=== PATIENT | male | born 1935 | race Caucasian/White ===

== ENCOUNTER → 2023-10-09 09:03 | Outpatient (REF) | payer MEDICARE, SELFPAY ==
[2023-10-09 11:41] LABS: Urine Albumin Trace (Neg - Trace); Urine Bilirubin 1+ (Negative); Urine Character Slightly Cloudy (Clear); Urine Color Yellow; Urine Glucose Negative (Negative); Urine Ketone Trace (Negative); Urine Leukocyte 2+ (Negative); Urine Nitrite Positive (Negative); Urine Occult Blood 4+ (Negative); Urine Specific Gravity 1.025 (<1.030); Urine Urobilinogen Negative (Neg - 1+)
[2023-10-09 12:01] LABS: Urine Amorphous Seen; Urine Bacteria Many (Negative)
== END ==
LOC: OLABP 09:03
PROVIDERS: ATTENDING PHYSICIAN Internal Medicine Geriatric Medicine
DX: N39.0 Urinary tract infection, site not specified (principal)
CPT/HCPCS: 81003; 81015; 87086; 87088; 87186

== ENCOUNTER → 2024-01-23 11:45 | Outpatient (REF) | payer MEDICARE, SELFPAY ==
[2024-01-23 12:05] LABS: Urine Albumin 1+ (Neg - Trace); Urine Bilirubin 1+ (Negative); Urine Character Very Cloudy (Clear); Urine Color Brown; Urine Glucose Negative (Negative); Urine Ketone Trace (Negative); Urine Leukocyte 2+ (Negative); Urine Nitrite Positive (Negative); Urine Occult Blood 1+ (Negative); Urine Specific Gravity 1.015 (<1.030); Urine Urobilinogen 2+ (Neg - 1+)
[2024-01-23 13:01] LABS: Urine Red Blood Cell 0-2 /HPF (0-2)
[2024-01-23 13:02] LABS: Urine Bacteria Many (Negative)
== END ==
LOC: OLABP 11:45
PROVIDERS: ATTENDING PHYSICIAN Internal Medicine Geriatric Medicine
DX: N39.0 Urinary tract infection, site not specified (principal)
CPT/HCPCS: 81003; 81015; 87077; 87086; 87186

== ENCOUNTER → 2024-01-27 11:32 | Outpatient (REF) | payer MEDICARE, SELFPAY ==
[2024-01-27 12:41] LABS: % Basophils 0.5 % (0-2); % Eosinophils 2.2 % (0-6); % Immature Granulocytes 0.3 % (0-0.5); % Lymphocytes 32.2 % (20.5-51.1); % Monocytes 14.2 % (1.7-9.3); % Neutrophils 50.6 % (42.2-75.2); Absolute Eosinophils 0.1 10^3/uL (0-0.7); Absolute Monocytes 0.9 10^3/uL (0.1-0.6); Absolute Neutrophils 3.2 10^3/uL (1.4-6.5); Hematocrit 35.6 % (39.0-52.0); Hemoglobin 12.4 g/dL (13.0-18.0); Mean Corp Hgb Conc. 34.8 g/dL (33.0-37.0); Mean Corpuscular Hgb 29.7 pg (27.0-31.0); Mean Corpuscular Volume 85.2 fL (80.0-94.0); Nucleated Red Blood Cells % 0 % (-); Platelet Count 174 10^3/uL (130-400); Red Blood Cell Count 4.18 10^6/uL (4.70-6.10); Red Cell Dist. Width 14.3 % (11.5-14.5); White Blood Cell Count 6.3 10^3/uL (4.8-10.8)
== END ==
LOC: OLABPG 11:32
PROVIDERS: ATTENDING PHYSICIAN Internal Medicine Geriatric Medicine; OTHER PHYSICIAN Urology
DX: N39.0 Urinary tract infection, site not specified (principal)
CPT/HCPCS: 36415; 85025; 87077; 87086; 87186

== ENCOUNTER 2024-06-08 08:06 | Emergency (ER) | payer MEDICARE, SELFPAY ==
[2024-06-08 08:09] VITALS: BP 128/99
[2024-06-08 08:44] LABS: Urine Albumin 1+ (Neg - Trace); Urine Bilirubin Negative (Negative); Urine Character Slightly Cloudy (Clear); Urine Color Yellow; Urine Glucose Negative (Negative); Urine Ketone Negative (Negative); Urine Leukocyte 2+ (Negative); Urine Nitrite Negative (Negative); Urine Occult Blood 4+ (Negative); Urine Urobilinogen 2+ (Neg - 1+)
[2024-06-08 09:00] VITALS: BP 139/98
[2024-06-08 09:02] LABS: Urine Bacteria Many (Negative)
[2024-06-08 09:04] LABS: Urine Red Blood Cell 80-90 /HPF (0-2)
[2024-06-08 09:05] LABS: Urine Squamous Cell 0-2 /LPF (Few); Urine White Cell >100 /HPF (0-5)
--- NOTE | 2024-06-08 09:42 | ED.GENMED ---
History of Present Illness
General
Chief Complaint: Catheter/Tube Problem
Source: patient and ambulance crew
Exam Limitations: dementia
Time Seen by Provider: 06/08/24 08:12
History of Present Illness
History of Present Illness:
89-year-old male with a history dementia sent for leaking catheter. On my evaluation the patient is cursing that no one has answered his pain. Patient is not really sure where his pain is but states that it hurts when they change the catheter out.
Has an indwelling [place] catheter. No reported fever
Past History
Past History
ED Past Medical History: Cancer (:), GERD, HTN, NIDDM and Other (Chronic indwelling [place] catheter, prostamegaly, chronic kidney disease, carotid atherosclerosis, dementia)
ED Past Surgical History: None
Social History
Tobacco: Non-smoker
Alcohol: None
Phy Exam
Physical Exam
Physical Exam:
CONSTITUTIONAL Patient alert and oriented to person. Well-appearing. Vital signs reviewed.
HEAD atraumatic, normocephalic.
EYES eyelids normal to inspection, Extraocular muscles intact, Conjunctiva normal, Sclera normal.
NECK normal range of motion, Trachea midline, no jugular venous distention.
RESPIRATORY CHEST No respiratory distress noted, Chest expansion equal
ABDOMEN abdomen nontender, Bowel sounds normal. No distention.
penis and scrotum unremarkable.
BACK normal inspection, no obvious deformities
UPPER EXTREMITY range of motion normal, Motor strength normal, no cyanosis, no edema.
LOWER EXTREMITY range of motion normal, Motor strength normal, no cyanosis, no edema.
NEURO Speech normal, No focal motor deficits, [place] coma scale 15, Memory normal, Cranial Nerves intact to screening exam.
SKIN skin warm, dry, and normal in color.
Course
Orders/Labs/Results
Orders:
Orders
06/08/24 08:24
Urinalysis Reflex To Culture Urgent
Date Specimen was Collected: 06/08/24
Time Specimen was Collected: 08:21
Urine Microscopic Reflex Cult Urgent
Urine Culture Urgent
KEN Source: U
Specimen Description:
Date Specimen was Collected: 06/08/24
Time Specimen was Collected:
Abnormal Lab Results
06/08/24
08:24
Ur Occult Blood Reflex 4+ A
(Negative)
Urine Urobilinogen 2+ A
(Neg - 1+)
Leukocyte Esterase Rfl 2+ A
(Negative)
Urine RBC 80-90 A /HPF
(0-2)
Urine WBC (Reflex) >100 A /HPF
(0-5)
Urine Bacteria (Reflex) Many A
(Negative)
Urine Albumin (Reflex) 1+ A
(Neg - Trace)
Vital Signs
Initial and Last Documented VS:
Initial Vital Signs
Temp Pulse Resp BP Pulse Ox
97.8 F 95 16 128/99 98
06/08/24 08:09 06/08/24 08:09 06/08/24 08:09 06/08/24 08:09 06/08/24 08:09
Last Documented Vital Signs
Temp Pulse Resp BP Pulse Ox
97.8 F 95 16 139/98 95
06/08/24 08:09 06/08/24 08:09 06/08/24 08:09 06/08/24 09:00 06/08/24 09:00
MDM/Problems Addressed
MDM/Problems Addressed:
Leaking [place] catheter, UTI, chronic bladder outlet obstruction, chronic dementia
Chronic conditions affecting care: Other (Dementia)
*Pulse Oximetry
Patient hypoxic: no
*Critical Care Note
Total Time (30-74mins, 75-104mins- exclusive of procedures): Not Applicable
Data Reviewed
Review of Other/Old Records Reveals: Labs (Prior cultures reviewed)
Source: patient
Patient Management
Escalation/DeEscalation of care consider admission/obs:
Patient appears well and at baseline. Cover with antibiotics. [place] catheter changed out. Okay for discharge. Afebrile. Awake and alert
ED Attending Note
-
Portions of this chart may have been created with voice recognition software.� Occasional wrong word or��sound alike� substitutions may have occurred due to the inherent limitations of voice recognition software.
Discharge Plan
Departure
Patient Disposition: Home (Routine Discharge)
Date of Disposition: 06/08/24
Time of Disposition: 09:48
Patient with high blood pressure during this ER visit?: Yes
Discharge Problem:
Chronic indwelling [place] catheter, Acute UTI
Prescriptions:
New
levofloxacin 250 mg tablet
250 mg PO DAILY Qty: 6 0RF
No Action
acetaminophen 325 mg Tablet
650 mg PO Q6H PRN (Reason: mild pain/fever>101)
aspirin 81 mg Tablet,Delayed Release (Dr/Ec)
81 mg PO HS
magnesium hydroxide [Milk of Magnesia] 400 mg/5 mL Suspension
30 ml PO DAILY PRN (Reason: if no bm x 3 days)
bisacodyl [Dulcolax (bisacodyl)] 10 mg Suppository
10 mg [place] DAILY PRN (Reason: if mom ineffective)
Citrucel 500 mg Tablet
2,000 mg PO BID
dorzolamide 2 % drops
1 drp RIGHT EYE BID
cholecalciferol (vitamin D3) [Vitamin D3] 50 mcg (2,000 unit) Capsule
50 mcg PO DAILY
Eliquis 5 mg Tablet
5 mg PO BID Qty: 60 0RF
atorvastatin 40 mg Tablet
40 mg PO HS
trazodone 50 mg Tablet
25 mg PO HS
diltiazem HCl 240 mg Capsule,Extended Release 24hr
240 mg PO DAILY
ibuprofen 200 mg Tablet
200 mg PO Q30M PRN (Reason: mild pain)
Rx Instructions:
03/18/2023, patient takes 30 minutes prior to monthly cath change
omeprazole 20 mg Capsule,Delayed Release(Dr/Ec)
20 mg PO DAILY
furosemide 20 mg Tablet
20 mg PO DAILY
ondansetron 4 mg Tablet,Disintegrating
4 mg PO Q8H PRN (Reason: nausea/vomiting)
Ensure Liquid
1 ea PO BID
latanoprostene bunod 0.024 % Drops
1 drp RIGHT EYE HS
metoprolol succinate 100 mg tablet extended release 24 hr
100 mg PO DAILY
lidocaine 5 % Ointment
1 applic TOPICAL Q30M PRN (Reason: skin pain)
Rx Instructions:
03/18/2023, patient applies 30 minutes prior to cuba catheter insertion to tip of penis
Referrals:
UNKNOWN - PT DOES,NOT KNOW [Family Provider] -
Activity Restrictions/Additional Instructions:
Please see your doctor next 2 days for follow-up and reevaluation peer return immediate for fevers, vomiting, blood in catheter or any other concerns.
Interventions
Interventions:
*Risk Screen - Suicide Last Done: 06/08/24 08:09
*General Assessment Last Done: 06/08/24 08:09
*Neglect/Abuse Screening Last Done: 06/08/24 08:09
*ED COVID-19 Vaccine History Last Done: 06/08/24 08:28
DP-Ngjfpb-Fppxtwsaft Assessment Last Done: 06/08/24 08:28
ED-Male Genitourinary Assessment Last Done: 06/08/24 08:28
Discharge Date and Time
Print Language: JAPANESE
[2024-06-08 10:00] VITALS: BP 122/86
[2024-06-08] MEDS: LEVAQUIN 500 MG PO (10:28)
[2024-06-08 11:17] VITALS: BP 129/84
== END 2024-06-08 11:21 | disposition home or self-care (01) ==
LOC: EMR 08:06
PROVIDERS: EMERGENCY PHYSICIAN Emergency Medicine
DX: N39.0 Urinary tract infection, site not specified (principal); F03.90 Unspecified dementia, unspecified severity, without behavioral disturbance, psychotic disturbance, mood disturbance, and anxiety; I12.9 Hypertensive chronic kidney disease with stage 1 through stage 4 chronic kidney disease, or unspecified chronic kidney disease; E11.22 Type 2 diabetes mellitus with diabetic chronic kidney disease; N18.9 Chronic kidney disease, unspecified; K21.9 Gastro-esophageal reflux disease without esophagitis
CPT/HCPCS: 99282; 51702; 81003; 81015; 87086

== ENCOUNTER → 2024-06-08 13:08 | Outpatient (REF) | payer MEDICARE, SELFPAY ==
[2024-06-08 13:48] LABS: % Basophils 0.5 % (0-2); % Eosinophils 2.5 % (0-6); % Immature Granulocytes 0.3 % (0-0.5); % Lymphocytes 29.5 % (20.5-51.1); % Monocytes 14.9 % (1.7-9.3); % Neutrophils 52.3 % (42.2-75.2); Absolute Eosinophils 0.2 10^3/uL (0-0.7); Absolute Lymphocytes 1.8 10^3/uL (1.2-3.4); Absolute Monocytes 0.9 10^3/uL (0.1-0.6); Absolute Neutrophils 3.2 10^3/uL (1.4-6.5); Hematocrit 35.2 % (39.0-52.0); Hemoglobin 11.7 g/dL (13.0-18.0); Mean Corp Hgb Conc. 33.2 g/dL (33.0-37.0); Mean Corpuscular Hgb 28.7 pg (27.0-31.0); Mean Corpuscular Volume 86.3 fL (80.0-94.0); Mean Platelet Volume 12.6 fL (7.4-10.4); Nucleated Red Blood Cells % 0 % (-); Platelet Count 129 10^3/uL (130-400); Red Blood Cell Count 4.08 10^6/uL (4.70-6.10); Red Cell Dist. Width 14.5 % (11.5-14.5); White Blood Cell Count 6.1 10^3/uL (4.8-10.8)
[2024-06-08 14:07] LABS: ALT (SGPT) 26 U/L (0-50); AST (SGOT) 26 U/L (17-59); Albumin 3.2 g/dl (3.5-5.0); Alkaline Phosphatase 71 U/L (38-126); Blood Urea Nitrogen 20 mg/dl (9-20); Calcium 8.5 mg/dl (8.4-10.2); Carbon Dioxide 26 mmol/L (22-30); Chloride 106 mmol/L (98-107); Glucose 126 mg/dl (70-99); HDL Cholesterol 32 mg/dl; LDL Cholesterol, Calculated 55 mg/dl; Potassium 4.3 mmol/L (3.5-5.1); Sodium 143 mmol/L (135-145); Total Bilirubin 0.6 mg/dl (0.2-1.3); Total Cholesterol 103 mg/dl (50-199); Triglyceride 82 mg/dl (10-149); Very Low Density Lipoprotein 16 mg/dl (0-30); eGFR > 60.00
[2024-06-08 14:14] LABS: Vitamin D, 25-OH*** 36.1 ng/mL (30-80)
[2024-06-08 14:23] LABS: Glycohemoglobin (HgbA1c) 6.9 % (4.0-5.6)
== END ==
LOC: OLABPG 13:08
PROVIDERS: ATTENDING PHYSICIAN Internal Medicine Geriatric Medicine
DX: E55.9 Vitamin D deficiency, unspecified (principal); E11.9 Type 2 diabetes mellitus without complications
CPT/HCPCS: 36415; 80053; 80061; 82306; 83036; 85025

== ENCOUNTER 2024-07-24 08:09 | Emergency (ER) | payer MEDICARE, SELFPAY ==
[2024-07-24 08:11] VITALS: BP 141/96
--- NOTE | 2024-07-24 09:10 | ED.GENMED ---
History of Present Illness
General
Chief Complaint: Catheter/Tube Problem
Source: patient and ambulance crew
Exam Limitations: dementia
Time Seen by Provider: 07/24/24 09:02
Nursing documentation reviewed up to this point in time: agreed with
History of Present Illness
History of Present Illness:
pt is a 89 y/o M
from memory care at [facility]
h/o alzheimers
chronic indwelling york
apparently had some leaking around his penis from where his york is since yesterday and somem blood noticed in his urine
he is on elqiuis
pt is unable to provide history
i called [facility] and spoke with a RN who said he complained of pain this morning at the catheter site at his penis
he is due for a york change in 2 weeks
he is followed by urology
pt has not had any fever, chills, change in mental status, no vomitnig
Past History
Past History
ED Past Medical History: Cancer (:), GERD, HTN, NIDDM and Other (Chronic indwelling York catheter, prostamegaly, chronic kidney disease, carotid atherosclerosis, dementia)
ED Past Surgical History: None
Social History
Tobacco: Non-smoker
Alcohol: None
Review of Systems
Review of Systems
Allergies reviewed?: Yes
Unable to obtain full review of systems at this time due to: dementia
All Other Systems: Not applicable
Phy Exam
Physical Exam
Physical Exam:
GENERAL: Alert , in no apparent distress
EYE: pupils equal and reactive
NECK: Supple
ENT: o/p clr, mmm.
CARDIAC: Regular rate and rhythm .
LUNGS: Clear breath sounds bilaterally, no acute respiratory distress, no wheezes/rales/rhonchi
ABDOMEN: Soft, without focal tenderness, no r/g, no cvat, normal bowel sounds
gu: blood in the diaper (pink, no clots)
some cloudy urine in theh bag;
NEUROLOGICAL: Alert and oriented x 1; dementia, no focal neuro deficits
SKIN: Warm and dry, skin intact.
MUSCULOSKELETAL: No edema, well perfused. neg javier's sign
PSYCH: Normal and appropriate interaction.
Course
Orders/Labs/Results
Orders:
Orders
07/24/24 09:12
York Placement- Treatment ONCE
Reason for insertion: Chronic York on Admit
07/24/24 09:17
Lidocaine 2% [Lidocaine Uro-Jet 2%] 1 syringe .ROUTE .[facility]
07/24/24 09:34
Urinalysis Reflex To Culture Urgent
Date Specimen was Collected: 07/24/24
Time Specimen was Collected: 09:32
Urine Microscopic Reflex Cult Urgent
Urine Culture Urgent
KEN Source: U
Specimen Description:
Date Specimen was Collected: 07/24/24
Time Specimen was Collected: 09:32
07/24/24 10:18
Sulfamethox./Trimethoprim Ds [Bactrim Ds 800 mg/160 mg] 1 tablet PO NOW STA
07/24/24 10:21
LevoFLOXacin [Levaquin] 250 mg PO NOW STA
Abnormal Lab Results
07/24/24
09:34
Urine Ketones Trace A
(Negative)
Ur Occult Blood Reflex 4+ A
(Negative)
Urine Nitrite (Reflex) Positive A
(Negative)
Urine Urobilinogen 2+ A
(Neg - 1+)
Leukocyte Esterase Rfl 2+ A
(Negative)
Urine Albumin (Reflex) 3+ A
(Neg - Trace)
Vital Signs
Initial and Last Documented VS:
Initial Vital Signs
Temp Pulse Resp BP Pulse Ox
36.4 C 96 18 141/96 98
07/24/24 08:11 07/24/24 08:11 07/24/24 08:11 07/24/24 08:11 07/24/24 08:11
Last Documented Vital Signs
Temp Pulse Resp BP Pulse Ox
36.4 C 96 18 141/96 98
07/24/24 08:11 07/24/24 08:11 07/24/24 08:11 07/24/24 08:11 07/24/24 08:11
MDM/Problems Addressed
Differential Diagnosis Includes:
Traumatic hematuria, UTI, cystitis, York catheter malfunction
MDM/Problems Addressed:
89-year-old male with a history of dementia from a memory care unit presents for gross hematuria in his diaper and leakage of urine around the tubing. Patient is due to have his York changed in the next week or 2 and gets it routinely changed
every month. He has had this problem before, occasionally he grows out Proteus or Enterococcus. Patient does not report any discomfort to me and has not had any fevers recently. The nursing staff says that he complained of pain at his urethral
meatus this morning. He is on Eliquis. On exam there was a little trace of pink blood in the diaper without clots and what was draining in the York bag looked cloudy but not bloody. He did have some leakage of urine around the tubing. His York
was easily replaced and does have some translucent pink draining urine. There is no clots. His bladder scan postprocedure was less than 6 mL. He does have nitrate positive urine with blood and leukocytes. Sometimes he does have nitrate positive
and sometimes not. He is not overly ill-appearing or having any systemic symptoms however I will cover him with antibiotics. He is allergic to penicillin and cephalosporin, previously both Enterococcus and Proteus have been sensitive to Levaquin.
Patient given return precautions, follow-up with urology
*Critical Care Note
Total Time (30-74mins, 75-104mins- exclusive of procedures): Not Applicable
ED Attending Note
-
Portions of this chart may have been created with voice recognition software.� Occasional wrong word or��sound alike� substitutions may have occurred due to the inherent limitations of voice recognition software.
Discharge Plan
Departure
Patient Disposition: Home (Routine Discharge)
Date of Disposition: 07/24/24
Time of Disposition: 10:18
Patient with high blood pressure during this ER visit?: No
Covid-19: Not Applicable
Discharge Problem:
UTI (urinary tract infection), Hematuria
Instructions: How to Care for Your York Catheter, Male, Urinary Tract Infection, Adult ED
Prescriptions:
New
levofloxacin 250 mg tablet
250 mg PO DAILY Qty: 6 0RF
No Action
acetaminophen 325 mg Tablet
650 mg PO Q6H PRN (Reason: mild pain/fever>101)
aspirin 81 mg Tablet,Delayed Release (Dr/Ec)
81 mg PO HS
magnesium hydroxide [Milk of Magnesia] 400 mg/5 mL Suspension
30 ml PO DAILY PRN (Reason: if no bm x 3 days)
bisacodyl [Dulcolax (bisacodyl)] 10 mg Suppository
10 mg [place] DAILY PRN (Reason: if mom ineffective)
Citrucel 500 mg Tablet
2,000 mg PO BID
dorzolamide 2 % drops
1 drp RIGHT EYE BID
cholecalciferol (vitamin D3) [Vitamin D3] 50 mcg (2,000 unit) Capsule
50 mcg PO DAILY
Eliquis 5 mg Tablet
5 mg PO BID Qty: 60 0RF
atorvastatin 40 mg Tablet
40 mg PO HS
trazodone 50 mg Tablet
25 mg PO HS
diltiazem HCl 240 mg Capsule,Extended Release 24hr
240 mg PO DAILY
ibuprofen 200 mg Tablet
200 mg PO Q30M PRN (Reason: mild pain)
Rx Instructions:
03/18/2023, patient takes 30 minutes prior to monthly cath change
omeprazole 20 mg Capsule,Delayed Release(Dr/Ec)
20 mg PO DAILY
furosemide 20 mg Tablet
20 mg PO DAILY
ondansetron 4 mg Tablet,Disintegrating
4 mg PO Q8H PRN (Reason: nausea/vomiting)
Ensure Liquid
1 ea PO BID
latanoprostene bunod 0.024 % Drops
1 drp RIGHT EYE HS
metoprolol succinate 100 mg tablet extended release 24 hr
100 mg PO DAILY
lidocaine 5 % Ointment
1 applic TOPICAL Q30M PRN (Reason: skin pain)
Rx Instructions:
03/18/2023, patient applies 30 minutes prior to york catheter insertion to tip of penis
levofloxacin 250 mg tablet
250 mg PO DAILY Qty: 6 0RF
Referrals:
Zuhair Nicole MD [Family Provider] - Follow up in 2-3 days
Activity Restrictions/Additional Instructions:
SANDEE'S YORK WAS CHANGED
HIS URINE APPEARS INFECTED SO WE WILL TREAT HIM WITH ANTIBIOTICS LEVAQUIN ONCE A DAY FOR 6 DAYS STARTING TOMORROW
MAKE SURE TO WATCH FOR FEVER, VOMITING, WORSENING YORK ISSUES, NOT DRAINING OR ANY CONCERNS.
FOLLOW UP WITH UROLOGIST
RETURN FO RANY CONCERNS.
Interventions
Interventions:
*Risk Screen - Suicide Last Done: 07/24/24 08:11
*General Assessment Last Done: 07/24/24 08:11
*Neglect/Abuse Screening Last Done: 07/24/24 08:11
ED- Fall Risk Assessment Last Done: 07/24/24 10:35
*ED COVID-19 Vaccine History Last Done: 07/24/24 08:11
OP-Jdxjtl-Mpuudimzld Assessment Last Done: 07/24/24 09:30
ED-Male Genitourinary Assessment Last Done: 07/24/24 09:30
Discharge Date and Time
Print Language: PAP[place]
[2024-07-24 09:48] LABS: Urine Albumin 3+ (Neg - Trace); Urine Bilirubin Negative (Negative); Urine Character Very Cloudy (Clear); Urine Color Red; Urine Glucose Negative (Negative); Urine Ketone Trace (Negative); Urine Leukocyte 2+ (Negative); Urine Nitrite Positive (Negative); Urine Occult Blood 4+ (Negative); Urine Specific Gravity 1.015 (<1.030); Urine Urobilinogen 2+ (Neg - 1+)
[2024-07-24] MEDS: LEVAQUIN 250 MG PO (10:34)
[2024-07-24 10:40] LABS: Urine Triple Phosphate Crystal Seen
[2024-07-24 10:41] LABS: Urine Bacteria Moderate (Negative); Urine Red Blood Cell >100 /HPF (0-2); Urine White Cell 0-2 /HPF (0-5)
== END 2024-07-24 10:50 ==
LOC: EMR 08:09
PROVIDERS: Physician Assistant; EMERGENCY PHYSICIAN Emergency Medicine; FAMILY PHYSICIAN Internal Medicine Geriatric Medicine
DX: N39.0 Urinary tract infection, site not specified (principal); R31.0 Gross hematuria; G30.9 Alzheimer's disease, unspecified; F02.80 Dementia in other diseases classified elsewhere, unspecified severity, without behavioral disturbance, psychotic disturbance, mood disturbance, and anxiety; I12.9 Hypertensive chronic kidney disease with stage 1 through stage 4 chronic kidney disease, or unspecified chronic kidney disease; N18.9 Chronic kidney disease, unspecified; E11.22 Type 2 diabetes mellitus with diabetic chronic kidney disease; K21.9 Gastro-esophageal reflux disease without esophagitis; Z79.01 Long term (current) use of anticoagulants; Z46.6 Encounter for fitting and adjustment of urinary device
CPT/HCPCS: 51702; 99283; 81003; 81015; 87086

== ENCOUNTER 2024-08-08 12:43 | Emergency (ER) | payer MEDICARE, SELFPAY ==
[2024-08-08] VITALS (7 sets, daily range): BP systolic 105–132; BP diastolic 76–101; BMI 30.5
--- NOTE | 2024-08-08 12:53 | ED.GENMED ---
History of Present Illness
General
Chief Complaint: Catheter/Tube Problem
Source: patient, ambulance crew and longterm records
Exam Limitations: altered mental status
Time Seen by Provider: 08/08/24 12:50
History of Present Illness
History of Present Illness:
89 yo male from [facility] presents for clogged [place] catheter. Per EMS, pt given Ativan prior to transport. Pt presents somnolent but easily aroused. Eyes closed but answers yes and no.
Denies CP, trouble breathing, abdominal pain, denies n/v/.
Tachycardic, afib w RVR rate 120's-130's on arrival.
Past History
Past History
ED Past Medical History: Cancer (:), GERD, HTN, NIDDM and Other (Chronic indwelling [place] catheter, enlarged prostate, chronic kidney disease, carotid atherosclerosis, dementia)
ED Past Surgical History: None
Social History
Tobacco: Non-smoker
Alcohol: None
Review of Systems
Review of Systems
Allergies reviewed?: Yes
All Other Systems: ROS reviewed and negative except as documented in HPI and ROS
Constitutional: Denies fever
Respiratory: Denies trouble breathing
Cardiac: Denies chest pain
ABD/GI: Denies abdominal pain, nausea, vomiting or diarrhea
: Reports other (chronic indwelling [place] Catheter)
Musculoskeletal: Denies edema
Skin: Reports no symptoms
Neurological: Denies headache
Phy Exam
Physical Exam
Physical Exam:
GENERAL: No acute distress. A&Ox3.
CONSTITUTIONAL: Afebrile.
EYES: clear, conjunctivae normal
ENMT: moist mucus membranes
RESPIRATORY: Regular respirations, nonlabored, lungs clear.
CARDIOVASCULAR: Irregular rate and rhythm. no murmurs, no rubs.
GI: Soft, tender suprapubic area, normal BS
MUSCULOSKELETAL: Moves with ease. Well perfused.
SKIN: Warm, dry, pink
PSYCH: Depressed mood and affect. Follows commands.
NEUROLOGIC: Somnolent, easily arouses. No focal neurological deficits
Sepsis
Sepsis Screening
Sepsis Assessment: Sepsis Ruled Out
Sepsis Screen
Sepsis Screen: Sepsis Ruled Out
Date: 08/11/24
Time: 12:06
Course
Orders/Labs/Results
Orders:
Orders
08/08/24 12:50
Electrocardiogram (*1) Urgent
Reason for Study: Tachycardia
EKG- Treatment ONCE
08/08/24 12:52
Cuba [Cuba Placement- Treatment] ONCE
Reason for insertion: Chronic Cuba on Admit
08/08/24 13:01
Complete Blood Count/With Diff Urgent
08/08/24 13:13
Urinalysis Reflex To Culture Urgent
Date Specimen was Collected: 08/08/24
Time Specimen was Collected: 13:12
Urine Microscopic Reflex Cult Urgent
Urine Culture Urgent
KEN Source: U
Specimen Description:
Date Specimen was Collected: 08/08/24
Time Specimen was Collected: 13:12
08/08/24 13:16
Bladder Scan- Treatment ONCE
08/08/24 13:25
Comprehensive Metabolic Panel Urgent
Troponin I Urgent
08/08/24 14:29
0.9% Sodium Chloride 500 ml [Nss] 500 ml IV BOLUS
08/08/24 14:53
Diltiazem HCl [Cardizem] 10 mg IV NOW STA
Abnormal Lab Results
08/08/24 08/08/24 08/08/24
13:01 13:13 13:25
WBC 10.9 H 10^3/uL
(4.8-10.8)
RBC 4.52 L 10^6/uL
(4.70-6.10)
Hgb 12.7 L g/dL
(13.0-18.0)
MCHC 31.9 L g/dL
(33.0-37.0)
RDW 14.7 H %
(11.5-14.5)
MPV 12.1 H fL
(7.4-10.4)
Absolute Neuts (auto) 7.8 H 10^3/uL
(1.4-6.5)
Absolute Lymphs (auto) 1.1 L 10^3/uL
(1.2-3.4)
Absolute Monos (auto) 1.8 H 10^3/uL
(0.1-0.6)
Lymphocytes % 10.4 L %
(20.5-51.1)
Monocytes % 16.9 H %
(1.7-9.3)
BUN 26 H mg/dl
(9-20)
Glucose 160 H mg/dl
(70-99)
Albumin 3.4 L g/dl
(3.5-5.0)
Ur Occult Blood Reflex 4+ A
(Negative)
Urine Nitrite (Reflex) Positive A
(Negative)
Urine Bilirubin 1+ A
(Negative)
Leukocyte Esterase Rfl 1+ A
(Negative)
Urine RBC >100 A /HPF
(0-2)
Urine Bacteria (Reflex) Many A
(Negative)
Urine Glucose Trace A
(Negative)
Urine Albumin (Reflex) 2+ A
(Neg - Trace)
08/08/24 13:01
08/08/24 13:25
Vital Signs
Initial and Last Documented VS:
Initial Vital Signs
Temp Pulse Resp BP Pulse Ox
98.5 F 124 22 132/87 93
08/08/24 12:46 08/08/24 12:46 08/08/24 12:46 08/08/24 12:46 08/08/24 12:46
Last Documented Vital Signs
Temp Pulse Resp BP Pulse Ox
98.5 F 102 18 119/81 97
08/08/24 12:46 08/08/24 18:00 08/08/24 18:00 08/08/24 18:00 08/08/24 15:00
MDM/Problems Addressed
MDM/Problems Addressed:
89 yo male from [facility] w h/o afaib on Eliquis, HTN, GERD, chronic [place] catheter, presents for clogged [place] catheter. Per EMS, pt given Ativan prior to transport. Pt presents somnolent but easily aroused. Eyes closed but answers yes and no.
Denies CP, trouble breathing, abdominal pain, denies n/v/.
Tachycardic, afib w RVR rate 120's-130's on arrival.
Spoke with Dorothea BEARDEN, admin at [employer] who states pt goes to Urologist to have catheter changed monthly.
Catheter #18 Fr inserted with ease, 1200 dark red urine return
2:30 p.m.
Cuba drained another 200 dark red blood urine, urine in tube seems to be clearing
Will administer IVFs to see if it clears as he is on Eliquis
Spoke with Dorothea BEARDEN desktop administrator at [employer] who states Pt had hematuria 07/24, finished 5 days of Levaquin 250 mg for UTI on 07/29.
3:30 p.m.
After IVFs, Urine now clear, pink tinged
After IV Cardizem HR now 100-110
Pt stable for discharge
Chronic conditions affecting care: HTN, Arrhythmia (a fib) and Other (chronic [place] catheter)
*Critical Care Note
Total Time (30-74mins, 75-104mins- exclusive of procedures): Not Applicable
ED Attending Note
-
Portions of this chart may have been created with voice recognition software.� Occasional wrong word or��sound alike� substitutions may have occurred due to the inherent limitations of voice recognition software.
Discharge Plan
Departure
Patient Disposition: Intermediate/SNF
Date of Disposition: 08/08/24
Time of Disposition: 15:28
Condition: Fair
Discharge Problem:
Acute retention of urine, Urinary catheter (Cuba) change required, Atrial fibrillation with rapid ventricular response
Instructions: Blood in Urine (Hematuria), Adult ED, Atrial fibrillation - Discharge instructions
Prescriptions:
No Action
acetaminophen 325 mg Tablet
650 mg PO Q6H PRN (Reason: mild pain/fever>101)
aspirin 81 mg Tablet,Delayed Release (Dr/Ec)
81 mg PO HS
magnesium hydroxide [Milk of Magnesia] 400 mg/5 mL Suspension
30 ml PO DAILY PRN (Reason: if no bm x 3 days)
bisacodyl [Dulcolax (bisacodyl)] 10 mg Suppository
10 mg [place] DAILY PRN (Reason: if mom ineffective)
Citrucel 500 mg Tablet
2,000 mg PO BID
dorzolamide 2 % drops
1 drp RIGHT EYE BID
cholecalciferol (vitamin D3) [Vitamin D3] 50 mcg (2,000 unit) Capsule
50 mcg PO DAILY
Eliquis 5 mg Tablet
5 mg PO BID Qty: 60 0RF
atorvastatin 40 mg Tablet
40 mg PO HS
trazodone 50 mg Tablet
25 mg PO HS
diltiazem HCl 240 mg Capsule,Extended Release 24hr
240 mg PO DAILY
ibuprofen 200 mg Tablet
200 mg PO Q30M PRN (Reason: mild pain)
Rx Instructions:
03/18/2023, patient takes 30 minutes prior to monthly cath change
omeprazole 20 mg Capsule,Delayed Release(Dr/Ec)
20 mg PO DAILY
furosemide 20 mg Tablet
20 mg PO DAILY
ondansetron 4 mg Tablet,Disintegrating
4 mg PO Q8H PRN (Reason: nausea/vomiting)
Ensure Liquid
1 ea PO BID
latanoprostene bunod 0.024 % Drops
1 drp RIGHT EYE HS
metoprolol succinate 100 mg tablet extended release 24 hr
100 mg PO DAILY
lidocaine 5 % Ointment
1 applic TOPICAL Q30M PRN (Reason: skin pain)
Rx Instructions:
03/18/2023, patient applies 30 minutes prior to cuba catheter insertion to tip of penis
levofloxacin 250 mg tablet
250 mg PO DAILY Qty: 6 0RF
levofloxacin 250 mg tablet
250 mg PO DAILY Qty: 6 0RF
Referrals:
Zuhair Nicole MD [Family Provider] -
Activity Restrictions/Additional Instructions:
As we discussed, Mr. Shen had 1400 urine retention, that drained dark red bloody urine.
After IV fluids urine is now clear, pink tinged with occasional tiny clots.
Since it is clearing, no need to hold Eliquis at this time
If urine turns bloody again, notify his doctor as the Eliquis may need to be held for a short term.
He was also in Afib with rate of 120's-130's.
Gave Cardizem 10 mg IV and rate now 100- 110.
Please inform primary care provider as they may want to increase his Cardizem.
No sign of infection in urine, urine culture pending.
Interventions
Interventions:
*Risk Screen - Suicide Last Done: 08/08/24 12:51
*General Assessment Last Done: 08/08/24 12:51
*Neglect/Abuse Screening Last Done: 08/08/24 12:51
ED- Fall Risk Assessment Last Done: 08/08/24 18:23
*ED COVID-19 Vaccine History Last Done: 08/08/24 12:51
*Nursing Disposition Last Done: 08/08/24 18:23
RR-Ogdpoo-Fcyaeuadoo Assessment Last Done: 08/08/24 13:00
ED-Male Genitourinary Assessment Last Done: 08/08/24 13:00
Discharge Date and Time
Discharge Date/Time: 08/08/24 18:25
Print Language: MONGOLIAN
[2024-08-08 13:13] LABS: % Basophils 0.2 % (0-2); % Eosinophils 0.4 % (0-6); % Immature Granulocytes 0.3 % (0-0.5); % Lymphocytes 10.4 % (20.5-51.1); % Monocytes 16.9 % (1.7-9.3); % Neutrophils 71.8 % (42.2-75.2); Absolute Lymphocytes 1.1 10^3/uL (1.2-3.4); Absolute Monocytes 1.8 10^3/uL (0.1-0.6); Absolute Neutrophils 7.8 10^3/uL (1.4-6.5); Hematocrit 39.8 % (39.0-52.0); Hemoglobin 12.7 g/dL (13.0-18.0); Mean Corp Hgb Conc. 31.9 g/dL (33.0-37.0); Mean Corpuscular Hgb 28.1 pg (27.0-31.0); Mean Corpuscular Volume 88.1 fL (80.0-94.0); Mean Platelet Volume 12.1 fL (7.4-10.4); Nucleated Red Blood Cells % 0 % (-); Platelet Count 131 10^3/uL (130-400); Red Blood Cell Count 4.52 10^6/uL (4.70-6.10); Red Cell Dist. Width 14.7 % (11.5-14.5); White Blood Cell Count 10.9 10^3/uL (4.8-10.8)
[2024-08-08 13:45] LABS: ALT (SGPT) 21 U/L (0-50); AST (SGOT) 25 U/L (17-59); Albumin 3.4 g/dl (3.5-5.0); Alkaline Phosphatase 66 U/L (38-126); Blood Urea Nitrogen 26 mg/dl (9-20); Calcium 8.5 mg/dl (8.4-10.2); Carbon Dioxide 25 mmol/L (22-30); Chloride 105 mmol/L (98-107); Estimated Creatinine Clearance 45 ml/min; Glucose 160 mg/dl (70-99); Potassium 4.2 mmol/L (3.5-5.1); Sodium 137 mmol/L (135-145); Total Bilirubin 1.1 mg/dl (0.2-1.3); Total Protein 6.4 g/dl (6.3-8.2); eGFR 53.17
[2024-08-08 14:10] LABS: Troponin I 0.019 ng/ml
[2024-08-08 14:20] LABS: Urine Albumin 2+ (Neg - Trace); Urine Bilirubin 1+ (Negative); Urine Character Very Cloudy (Clear); Urine Color Red; Urine Glucose Trace (Negative); Urine Ketone Negative (Negative); Urine Leukocyte 1+ (Negative); Urine Nitrite Positive (Negative); Urine Occult Blood 4+ (Negative); Urine Specific Gravity 1.015 (<1.030); Urine Urobilinogen 1+ (Neg - 1+)
[2024-08-08] MEDS: NSS 500 IV (14:32)
[2024-08-08 14:39] LABS: Urine Amorphous Seen
[2024-08-08 14:41] LABS: Urine Bacteria Many (Negative); Urine Red Blood Cell >100 /HPF (0-2)
[2024-08-08] MEDS: CARDIZEM 10 MG IV (14:58)
== END 2024-08-08 18:25 ==
LOC: EMR 12:43
PROVIDERS: Registered Nurse; EMERGENCY PHYSICIAN Student in an Organized Health Care Education/Training Program; FAMILY PHYSICIAN Internal Medicine Geriatric Medicine
DX: R33.9 Retention of urine, unspecified (principal); T83.098A Other mechanical complication of other urinary catheter, initial encounter; X58.XXXA Exposure to other specified factors, initial encounter; R31.9 Hematuria, unspecified; I48.91 Unspecified atrial fibrillation; I12.9 Hypertensive chronic kidney disease with stage 1 through stage 4 chronic kidney disease, or unspecified chronic kidney disease; E11.22 Type 2 diabetes mellitus with diabetic chronic kidney disease; N18.9 Chronic kidney disease, unspecified; F03.90 Unspecified dementia, unspecified severity, without behavioral disturbance, psychotic disturbance, mood disturbance, and anxiety; K21.9 Gastro-esophageal reflux disease without esophagitis; Z79.01 Long term (current) use of anticoagulants
CPT/HCPCS: 96374; 51702; 99284; 80053; 81003; 81015; 84484; 85025; 87086; 93005

== ENCOUNTER 2024-08-21 16:30 | Inpatient (IN) | payer MEDICARE, SELFPAY ==
[2024-08-21] VITALS (36 sets, daily range): BP systolic 64–211; BP diastolic 44–167; BMI 33.0
--- NOTE | 2024-08-21 13:09 | ED.GENMED ---
History of Present Illness
General
Chief Complaint: Catheter/Tube Problem
Source: patient
Exam Limitations: none
Time Seen by Provider: 08/21/24 12:51
Nursing documentation reviewed up to this point in time: agreed with
History of Present Illness
History of Present Illness:
Patient with history of dementia and chronic indwelling Casey catheter, presents to ED from snf secondary to lack of urinary output along with blood around his Casey catheter. Upon arrival, patient himself has no complaints. Denies fever.
Denies headache. Denies abdominal pain. Denies coughing.
Past History
Past History
ED Past Medical History: Cancer (:), GERD, HTN, NIDDM and Other (Chronic indwelling Casey catheter, enlarged prostate, chronic kidney disease, carotid atherosclerosis, dementia)
ED Past Surgical History: None
Social History
Tobacco: Non-smoker
Alcohol: None
Review of Systems
Review of Systems
Allergies reviewed?: Yes
Unable to obtain full review of systems at this time due to: dementia
All Other Systems: Not applicable
Phy Exam
Physical Exam
Physical Exam:
Physical Exam
General: no apparent distress, not acutely ill. afebrile
Head: nc/at. eomi
Neck: supple. normal range of motion.
Abdomen: normal bowel sounds. not tender.
Neuro: alert and oriented x 1. no focal neurological deficits
Skin: no rash
Psychiatric: well kept. interactive and cooperative, but confused
Extremities: no edema. no calf tenderness.
Course
Orders/Labs/Results
Orders:
Orders
08/21/24 13:08
Casey Placement- Treatment ONCE
Reason for insertion: Acute Retention
08/21/24 13:09
Lidocaine 2% [Lidocaine Uro-Jet 2%] 1 syringe .ROUTE .[facility] ONE
08/21/24 13:12
Electrocardiogram (*1) Urgent
Reason for Study: Atrial Fibrillation
EKG- Treatment ONCE
08/21/24 13:48
Diltiazem HCl [Cardizem] 15 mg IV NOW STA
08/21/24 14:00
Diltiazem 125 mg/125 ml Nss [Cardizem] 125 mg in 125 ml IV PER PROTOCOL
Initial dose in mg/hr, then titrate:: 5
Titrate to keep:: Heart rate 80-100 bpm
Titrate by mg/hr:: 5 mg/hr
Frequency of titrations (minutes):: 15
Maximum dose in mg/hr:: 15
08/21/24 14:07
Basic Metabolic Panel Urgent
Complete Blood Count/With Diff Urgent
08/21/24 14:29
Electrocardiogram (*1) Urgent
Reason for Study: Atrial Fibrillation
EKG- Treatment ONCE
08/21/24 Dinner
2200 calorie (18 carb) Diabetic
At Your Request: Non-Participating
08/21/24 15:30
CARDIOLOGY CONSULT Routine
Consulting Provider: Holden Oliveira
Was physician already notified: Yes
08/21/24 15:54
Admit/Transfer Patient As Directed
Co-Sign Provider:
Level of Care: Inpatient admission
Assign to:: IVU
Physician / Group: Lynne Zaldivar
Diagnosis: Hematuria/Rapid A fib with RVR
Reason for Hospitalization: Hematuria/Rapid A fib with RVR
Expected length of stay greater than two midnights?: Yes
ELOS- Estimated Length of Stay in days: 3
I certify the patient meets the requirements for IP care: Yes
PRN Pain Medication Management As Directed
May give lesser potent ordered pain med per pt: Yes
preference::
Protocol:: Medication orders for pain may be administered in a
manner that supports deferring to patient preference
when the pt is:
- Requesting an ordered lesser potent pain medication.
Least to most potent pain medications are defined
as: acetaminophen < NSAID < tramadol < opioids
(morphine, oxycodone, hydromorphone).
- Requesting a lesser dose of the same medication IF
ORDERED.
- Requesting a less intrusive route of administration
if both routes are prescribed by the provider (PO <
IV).
08/21/24 15:59
Code Status As Directed
Resuscitation Status: Do not resuscitate
Based on pt advanced directive or healthcare POA form: Yes
DNR Bracelet Application ONCE
08/21/24 16:03
Lidocaine 2% [Lidocaine Uro-Jet 2%] 1 syringe .ROUTE .[facility] ONE
08/21/24 16:14
Urinalysis Reflex To Culture Urgent
Date Specimen was Collected: 08/21/24
Time Specimen was Collected: 16:13
Urine Microscopic Reflex Cult Urgent
Urine Culture Urgent
KEN Source: U
Specimen Description:
Date Specimen was Collected: 08/21/24
Time Specimen was Collected: 16:13
08/21/24 20:00
Metoprolol Xl [Toprol Xl] 50 mg PO DAILY@1999
08/21/24 21:26
Acetaminophen [Tylenol] 650 mg PO Q4HPRN PRN
Bisacodyl [Dulcolax] 10 mg RECTAL [id number] PRN
Docusate W/Senna [Senokot-S] 1 tablet PO BIDPRN PRN
Dorzolamide HCl [Trusopt 2% Ophthalmic Solution] 1 drop RIGHT EYE BID
Heparin 5,000 units SC Q12
Lorazepam [Ativan] 0.5 mg PO DAILY
Non-Formulary Item 1 unit RIGHT EYE QPM
Ondansetron Orally Disint [Zofran Odt (Orally Disintegrating)] 4 mg PO Q8H PRN
Polyethylene Glycol Powder [Miralax] 17 grams PO DAILYPRN PRN
brexpiprazole [Rexulti] 2 mg PO DAILY
methylcellulose (laxative) [Citrucel] 2,000 mg PO BID
08/21/24 21:26
Activity As Directed
Activity Level: As Tolerated
Vital Signs As Directed
Frequency: Per unit guidelines
DX Deep Vein Thrombosis Video Routine
08/21/24 22:00
Atorvastatin [Lipitor] 40 mg PO HS
08/22/24 03:03
Basic Metabolic Panel IN AM
Complete Blood Count/With Diff IN AM
Magnesium IN AM
Prothrombin Time IN AM
08/22/24 06:00
Echo 2D MMode Color/Doppler IN AM
Reason for Study: Afib, mod
OT Consult [Ot Eval And Treat] Routine
Pt Eval And Treat Routine
Activity Level: As Tolerated
08/22/24 08:00
Cholecalciferol (Vitamin D3) [VITAMIN D3 (cholecalciferol)] 50 mcg PO DAILY
Metoprolol Xl [Toprol Xl] 100 mg PO DAILY
Pantoprazole [Protonix] 40 mg PO DAILY
08/24/24 11:00
DC Protocol for Telemetry ONCE
Abnormal Lab Results
08/21/24 08/21/24
14:07 16:14
WBC 12.4 H 10^3/uL
(4.8-10.8)
RBC 4.54 L 10^6/uL
(4.70-6.10)
Hgb 12.7 L g/dL
(13.0-18.0)
MCHC 31.9 L g/dL
(33.0-37.0)
RDW 14.9 H %
(11.5-14.5)
Plt Count 128 L 10^3/uL
(130-400)
MPV 12.6 H fL
(7.4-10.4)
Absolute Neuts (auto) 9.4 H 10^3/uL
(1.4-6.5)
Absolute Monos (auto) 1.8 H 10^3/uL
(0.1-0.6)
Neutrophils % 75.7 H %
(42.2-75.2)
Lymphocytes % 9.4 L %
(20.5-51.1)
Monocytes % 14.1 H %
(1.7-9.3)
BUN 28 H mg/dl
(9-20)
Creatinine 1.6 H mg/dL
(0.7-1.3)
Glucose 136 H mg/dl
(70-99)
Calcium 8.3 L mg/dl
(8.4-10.2)
Ur Occult Blood Reflex 4+ A
(Negative)
Leukocyte Esterase Rfl 1+ A
(Negative)
Urine RBC >100 A /HPF
(0-2)
Urine Albumin (Reflex) 2+ A
(Neg - Trace)
08/21/24 14:07
08/21/24 14:07
Vital Signs
Initial and Last Documented VS:
Initial Vital Signs
Pulse Resp BP Pulse Ox
123 22 145/99 96
08/21/24 12:55 08/21/24 12:55 08/21/24 12:55 08/21/24 12:55
Last Documented Vital Signs
Temp Pulse Resp BP Pulse Ox
98.1 F 89 14 117/59 94
08/22/24 06:54 08/22/24 06:53 08/22/24 06:54 08/22/24 06:53 08/22/24 06:54
MDM/Problems Addressed
MDM/Problems Addressed:
Casey catheter removed and exchanged with CBI. In addition, patient found to be in rapid atrial fibrillation. Heart rate improved with Cardizem bolus followed by infusion.
Dr. Kruse, urology, notified via [facility] text.
Critical care statement: A total of 40 minutes of critical care time was provided for this patient. This includes management of unstable vital signs, evaluation of the patient at bedside, reviewing the patient's pertinent medical records, discussion
with consultants, review of old EKGs and review of pertinent medical records. This time with separate from time utilized to perform the aforementioned documented procedures
*EKG
Interpreted by ED Provider?: Yes
EKG Intrepretation Date: 08/21/24
Heart Rate: 132
Rate: tachycardiac
Rhythm: a-fib
[place]: normal axis
Interval: normal interval
*Critical Care Note
Total Time (30-74mins, 75-104mins- exclusive of procedures): 40 min
ED Attending Note
-
Portions of this chart may have been created with voice recognition software.� Occasional wrong word or��sound alike� substitutions may have occurred due to the inherent limitations of voice recognition software.
Discharge Plan
Departure
Patient Disposition: Admit
Date of Disposition: 08/21/24
Time of Disposition: 14:42
Presentation/result/management discussed w/ accepting MD/DO: Hospitalist
Discharge Problem:
Obstructed Casey catheter, Atrial fibrillation, rapid
Interventions
Interventions:
*Risk Screen - Suicide Last Done: 08/21/24 12:56
*General Assessment Last Done: 08/21/24 12:56
*Neglect/Abuse Screening Last Done: 08/21/24 12:56
ED- Fall Risk Assessment Last Done: 08/21/24 13:39
*ED COVID-19 Vaccine History Last Done: 08/21/24 12:56
*Nursing Disposition Last Done: 08/21/24 20:55
CN-Rifdpp-Crbehanoyr Assessment Last Done: 08/21/24 13:39
ED-Male Genitourinary Assessment Last Done: 08/21/24 13:39
Discharge Date and Time
Discharge Date/Time: 08/21/24 20:56
--- NOTE | 2024-08-21 13:38 | EDRN ---
Urojet used for cuba insertion for pt comfort.
[2024-08-21] MEDS: CARDIZEM 15 MG IV (14:05)
[2024-08-21] MEDS: CARDIZEM 125 IV (14:10)
[2024-08-21 14:21] LABS: % Basophils 0.2 % (0-2); % Eosinophils 0.3 % (0-6); % Immature Granulocytes 0.3 % (0-0.5); % Lymphocytes 9.4 % (20.5-51.1); % Monocytes 14.1 % (1.7-9.3); % Neutrophils 75.7 % (42.2-75.2); Absolute Lymphocytes 1.2 10^3/uL (1.2-3.4); Absolute Monocytes 1.8 10^3/uL (0.1-0.6); Absolute Neutrophils 9.4 10^3/uL (1.4-6.5); Hematocrit 39.8 % (39.0-52.0); Hemoglobin 12.7 g/dL (13.0-18.0); Mean Corp Hgb Conc. 31.9 g/dL (33.0-37.0); Mean Corpuscular Volume 87.7 fL (80.0-94.0); Mean Platelet Volume 12.6 fL (7.4-10.4); Nucleated Red Blood Cells % 0 % (-); Platelet Count 128 10^3/uL (130-400); Red Blood Cell Count 4.54 10^6/uL (4.70-6.10); Red Cell Dist. Width 14.9 % (11.5-14.5); White Blood Cell Count 12.4 10^3/uL (4.8-10.8)
[2024-08-21 14:35] LABS: Blood Urea Nitrogen 28 mg/dl (9-20); Calcium 8.3 mg/dl (8.4-10.2); Carbon Dioxide 26 mmol/L (22-30); Chloride 105 mmol/L (98-107); Estimated Creatinine Clearance 35 ml/min; Glucose 136 mg/dl (70-99); Sodium 141 mmol/L (135-145); eGFR 41.44
--- NOTE | 2024-08-21 14:55 | HPS.HSE ---
Addendum entered and electronically signed by Lynne Zaldivar MD 08/21/24 17:12:
I personally performed a history and physical exam of the patient and discussed management with the resident. I reviewed the resident's note and agree with the documented findings and plan of care HPI/CC.
HPI: 89-year-old male with history of dementia, BPH, CKD, prostate hyperplasia, diabetes mellitus, hypertension, coronary artery disease; who [facility] with hematuria and clogged chronic catheter. He had 2 prior
admissions in July for urinary issues/hematuria/urinary retention. He is a poor historian due to underlying dementia.
Continuous bladder irrigation was started in ED with improvement of his hematuria.
He was also noted to be in A-fib RVR, and Cardizem drip was started.
He does have atrial fibrillation with rapid ventricular response, started on Cardizem drip. Admit to tele.
A/P:
# Hematuria
# History of BPH with chronic indwelling catheter
improved following CBI
Casey replaced with 20 Fr in ED (08/21/2024)
Uro consulted
# AB, suspect post renal
Admission creatinine 1.6, from baseline 1.2
Monitor serum creatinine
# Atrial fibrillation with rapid ventricular response
He was started with Cardizem drip
Cardiology consult for A-fib
Continue prior to admission Toprol
Holding prior to admission Eliquis in setting of hematuria
Other medical conditions
# Hyperlipidemia-continue statins
# Hypertension-continue meds as able
# Diabetes-carb controlled diet, insulin sliding scale
# GERD-continue PPI
# Dementia-continue Bexpiprazole
CODE STATUS-DNR
DVT prophylaxis subcut heparin 5000 units twice daily-
Original Note:
Family Physician
-
Family Physician: Zuhair Nicole
Chief Complaint
-
Hematuria and catheter issues
History of Present Illness
Patient is an 89-year-old male with chronic indwelling catheter, BPH, CKD, [id number] diabetes mellitus, essential hypertension, hyperlipidemia, coronary artery disease and dementia who [facility] with catheter issues
and blood around his urethra. Patient unable to provide much history due to his dementia. He is oriented to name but does not remember the place, year, reason to bring him to the hospital. On systemic review he denies any fever, chest pain,
chills, body aches or pains, burning micturition, abdominal pain, diarrhea, constipation, palpitations or any other issues.
For his hematuria, urology was consulted who suggested to put in a 22-24Fr urinary catheter, continuous bladder irrigation started, patient draining clear urine with a pink tinge. In urinary issues, patient had with rapid ventricular response,
started on Cardizem drip and cardiology consulted.
Patient is on Eliquis and aspirin for his cardiac issue, hold at this time due to hematuria
Medical History
Past Medical History
Past Medical History: Reports Dementia, GERD, HTN, NIDDM and Other (Chronic indwelling Casey catheter, enlarged prostate, chronic kidney disease, carotid atherosclerosis)
Past Surgical History: Reports None
Social History
Unable to obtain full social history at this time due to: Dementia
Tobacco: Non-smoker
Alcohol: None
Drug: None
Personal:
Living: [facility]-Way ( [facility])
Employment: Retired
Family History
Family History: Unable to Obtain
Allergies / Home Medications
Allergies reflects when Allergies were last updated in [employer].
Home Medications with original date entered in [employer]
Allergy/Medication List:
Allergies
Allergy/AdvReac Type Severity Reaction Status Date / Time
Cephalosporins Allergy possible Verified 08/21/24 12:55
cross-allergy
wtih PCN
penicillin G Allergy Unknown Verified 08/21/24 12:55
Penicillins Allergy Verified 08/21/24 12:55
claims PCN
allergy
wasp stings Allergy Unknown Uncoded 08/21/24 12:55
Home Medications
acetaminophen 325 mg tablet 650 mg PO Q6H PRN mild pain/fever>101 10/14/22
cholecalciferol (vitamin D3) 50 mcg (2,000 unit) capsule (Vitamin D3) 50 mcg PO DAILY Supplement 10/14/22
dorzolamide 2 % eye drops 1 drp RIGHT EYE BID Eye condition 10/14/22
methylcellulose (laxative) 500 mg tablet (Citrucel) 2,000 mg PO BID Constipation 10/14/22
apixaban 5 mg tablet (Eliquis) 5 mg PO BID #60 tabs 10/21/22
atorvastatin 40 mg tablet 40 mg PO HS 03/18/23
metoprolol succinate 100 mg tablet,extended release 24 hr 100 mg PO DAILY 03/18/23
omeprazole 20 mg capsule,delayed release 20 mg PO DAILY 03/18/23
ondansetron 4 mg disintegrating tablet 4 mg PO Q8H PRN nausea/vomiting 03/18/23
brexpiprazole 2 mg tablet (Rexulti) 2 mg PO DAILY 08/21/24
latanoprostene bunod 0.024 % eye drops (Vyzulta) 1 drp RIGHT EYE QPM 08/21/24
lorazepam 0.5 mg tablet 0.5 mg PO DAILY 08/21/24
valerian root 500 mg capsule 1,000 mg PO HS 08/21/24
Review of Systems
-
Unable to obtain full review of systems at this time due to: Dementia
A 12 point ROS was completed and negative except as noted: Yes
Physical Exam
Vital Signs
Vital Signs
Temp Pulse Resp BP Pulse Ox
98.2 F 100 18 133/90 96
08/21/24 12:56 08/21/24 14:15 08/21/24 14:15 08/21/24 14:05 08/21/24 14:15
Physical Exam
General: Well Developed, Well Nourished and No Apparent Distress
HEENT: NormoCephalic, Anicteric and Atraumatic
Respiratory: Clear
Cardiac: S1/S2, Irregular Rhythm and Tachycardia
GI: Soft, Non Tender, Non Distended and Normal Bowel Sounds
Musculoskeletal: No Clubbing, No Cyanosis and No Edema
Neuro: Awake and Other (Patient is oriented only to name, does not remember any details of his admission, does not follow commands)
Psych: Calm
Laboratory Results
-
08/21/24 14:07
08/21/24 14:07
Laboratory Results
Total Bilirubin Cancelled 08/21/24 14:07
AST Cancelled 08/21/24 14:07
ALT Cancelled 08/21/24 14:07
Alkaline Phosphatase Cancelled 08/21/24 14:07
Impression/Plan
-
IMPRESSION:
Patient is a 89-year-old male with history of dementia, BPH, CKD, prostate hyperplasia, diabetes mellitus, hypertension, coronary artery disease [facility]. He had 2 prior
admissions in July for urinary issues/hematuria/urinary retention. Continuous bladder irrigation started, patient has pinkish urine in the urinary bag. Does not provide much history because of his dementia, knows his name, denies any
complaints. He does have atrial fibrillation with rapid ventricular response, started on Cardizem drip. Transferred to telemetry.
ASSESSMENT/PLAN:
# Hematuria/acute urinary retention
Patient presented with hematuria, and lack of urine output
History of multiple admissions for similar complaints
History of BPH, CKD, chronic indwelling catheter
Started on continuous bladder irrigation after changing urinary catheter to 20Fr urinary catheter(08/21/2024)
Patient draining pinkish urine in bag
Continue to monitor, change Casey to 22-24Fr as recommended by the urologist
Await for urology recommendations
# AB
Patient has a baseline creatinine of 1-1.2
Patient serum creatinine is 1.6, most likely secondary to urinary retention
Casey's changed, patient has urine output now, monitor RFT's and observe
# Atrial fibrillation with rapid ventricular response
Patient has history of atrial fibrillation, currently on metoprolol succinate 100 mg and apixaban
Eliquis held for now due to hematuria
Cardiology consult appreciated-recommended to increase dose of metoprolol from 100 mg daily to 100 mg in morning and 50 mg at night
Wean off Cardizem as able
# Other medical conditions
Hyperlipidemia-continue statins
Hypertension-continue meds as able
Diabetes-carb controlled diet, insulin sliding scale
GERD-continue PPI
Dementia-continue Bexpiprazole
CODE STATUS-DNR
DVT prophylaxis subcut heparin 5000 units twice daily-
--- NOTE | 2024-08-21 15:14 | EDRN ---
Per Dr. Kruse catheter needs to be changed from 20 Fr to 22 Fr. Catheter is drining very well and urine has cleared. Pt is on bage #2 of irrigation.
--- NOTE | 2024-08-21 15:58 | CON.CAR ---
Addendum entered and electronically signed by Holden Oliveira MD 08/21/24 16:28:
I saw and examined the patient.
The ART COORDINATOR or PA's note was reviewed and I agree with the note.
Comment: General: Well developed, well nourished in NAD.
Neck: Supple, no JVD, HJR, carotids +2 B/L, no bruits bilaterally.
Heart: Non displaced PMI, irregular, no murmurs, No S3, S4, no rubs.
Lungs: Scattered rhonchi
Extremities: No clubbing, cyanosis or edema bilaterally.
Neuro: Grossly nonfocal, awake, alert and oriented x3.
Michoacano has a history of permanent A-fib on Eliquis, chronic diastolic CHF, CAD, hypertension, diabetes, dementia, GERD. He presented to the ER with blood around his [place] catheter and lack of urinary output. In the ER is found to be in rapid A-fib
and cardiology consulted. He is given a dose of 10 mg of IV Cardizem and heart rates improved and is currently on IV Cardizem drip. He is asymptomatic with regards to A-fib rapid rate. Will increase Toprol from 100 mg daily to 100 mg in the
morning and 50 mg at night. Hopefully can wean Cardizem off as pain improves as well. Eliquis may need to be held given hematuria. Discussed with nursing
Original Note:
Consultation
Consultation Request
Date/Time Consultation Requested: 08/21/2024
Date/Time Consultation Performed: 08/21/2024
Requesting Provider: Dr. Batista, Resident
Performing Provider: Renata Fried PA-C for Dr. Oliveira
Reason for Consultation: Afib w/ RVR
Medical History
-
History of Present Illness:
HPI: Michoacano is an 89 year old male with PMH of permanent atrial fibrillation, chronic HFpEF, CAD, HTN, HLD, DM2, dementia, and GERD. He presented to [facility] for evaluation after he was noted to have blood around his cuba catheter as well as lack of
urinary output. On arrival to ER, noted to be in rapid atrial fibrillation. He recently had similar ER visit 08/08/2024 with clogged cuba catheter and HR at that time was elevated as well. During prior ER visit, he was given a single dose of 10mg
IV cardizem and HRs improved. No changes were made to OP medications. On arrival to ER today, 08/21/2024, HRs were in the 130s. Patient was asymptomatic with this and denies any chest pain, palpitations, dizziness, lightheadedness, or SOB. He was
started on cardizem gtt and is admitted. Cardiology consulted for evaluation. Cardizem running @ 10 and rates improved, now in the 90s.
PMH:
Permanent atrial fibrillation
Chronic Eliquis OAC
Chronic HFpEF
CAD
s/p remote rotational atherectomy of LAD
HTN
HLD
DM2
h/o R renal artery stent 2002
s/p R carotid endarterectomy 2008
Dementia
GERD
Past Medical History
Past Medical History: Other (In HPI)
Past Surgical History: Other (Carotid endarterectomy)
Social History
Tobacco: Non-Smoker
Alcohol: None
Personal:
Living: Long-Term
Employment: Retired
Family History
Family History: Reviewed & Not Pertinent
Allergies / Home Medications
Allergy/AdvReac Type Severity Reaction Status Date / Time
Cephalosporins Allergy possible Verified 08/21/24 12:55
cross-allergy
wtih PCN
penicillin G Allergy Unknown Verified 08/21/24 12:55
Penicillins Allergy Verified 08/21/24 12:55
claims PCN
allergy
wasp stings Allergy Unknown Uncoded 08/21/24 12:55
�Medication �Instructions �Recorded �Confirmed �Type
acetaminophen 325 mg tablet 650 mg PO Q6H PRN mild 10/14/22 08/21/24 History
pain/fever>101
cholecalciferol (vitamin D3) 50 50 mcg PO DAILY Supplement 10/14/22 08/21/24 History
mcg (2,000 unit) capsule (Vitamin
D3)
dorzolamide 2 % eye drops 1 drp RIGHT EYE BID Eye condition 10/14/22 08/21/24 History
methylcellulose (laxative) 500 mg 2,000 mg PO BID Constipation 10/14/22 08/21/24 History
tablet (Citrucel)
apixaban 5 mg tablet (Eliquis) 5 mg PO BID #60 tabs 10/21/22 08/21/24 Rx
atorvastatin 40 mg tablet 40 mg PO HS 03/18/23 08/21/24 History
metoprolol succinate 100 mg 100 mg PO DAILY 03/18/23 08/21/24 History
tablet,extended release 24 hr
omeprazole 20 mg capsule,delayed 20 mg PO DAILY 03/18/23 08/21/24 History
release
ondansetron 4 mg disintegrating 4 mg PO Q8H PRN nausea/vomiting 03/18/23 08/21/24 History
tablet
brexpiprazole 2 mg tablet (Rexulti) 2 mg PO DAILY 08/21/24 08/21/24 History
latanoprostene bunod 0.024 % eye 1 drp RIGHT EYE QPM 08/21/24 08/21/24 History
drops (Vyzulta)
lorazepam 0.5 mg tablet 0.5 mg PO DAILY 08/21/24 08/21/24 History
valerian root 500 mg capsule 1,000 mg PO HS 08/21/24 08/21/24 History
Review of Systems
-
History Source: Patient
All other systems: Negative unless noted
Physical Exam
Vital Signs
Temp Pulse Resp BP Pulse Ox
98.2 F 90 18 129/80 94
08/21/24 12:56 08/21/24 15:03 08/21/24 15:03 08/21/24 15:03 08/21/24 15:03
Lab Results
08/21/24 14:07
08/21/24 14:07
Physical Exam
General: Well Developed, Well Nourished and No Apparent Distress
HEENT: Normocephalic, Anicteric and Moist Mucous Membranes
Respiratory: Clear and Non Labored Respirations
Cardiac: S1/S2 and Irregular Rhythm
Musculoskeletal: No Clubbing, No Cyanosis and Edema
Skin: Warm and Dry
Neuro: Awake, Alert and Nonfocal/Grossly Intact
Hematologic/Lymphatic: Lymphadenopathy
Impression / Plan
-
PCP: Dr. Nicole
Tariff Clerk: Dr. KELSIE Jasso
Impression
[place] catheter obstruction
Permanent atrial fibrillation w/ RVR
Chronic Eliquis OAC
Chronic HFpEF
CAD
s/p remote rotational atherectomy of LAD
HTN
HLD
DM2
h/o R renal artery stent 2002
s/p R carotid endarterectomy 2008
Dementia
GERD
Echo 10/19/2022: EF 60-65%, mild cLVH, MAC w/ mild MR, moderate with peak/mean gradients 24/15 mmHg, trace AI
Echo 08/22/2023: Study pending.
Plan:
-Presented with [place] catheter obstruction and bleeding around cuba catheter. Urology recommending changing catheter from 20 Fr to 22 Fr.
-Cardiology consulted due to rapid atrial fibrillation.
-Known permanent atrial fibrillation, maintained on Toprol 100mg daily for rate control as OP.
-Initial ECG reviewed, rapid atrial fibrillation w/ HR 132 bpm.
-Continue cardizem gtt, currently running @ 10. HRs improving, down into the 90s currently
-Will increase Toprol to 100mg AM, 50mg PM for better HR control.
-Continue Eliquis 5mg BID. Hgb stable at 12.7.
-Echo 10/2022 with preserved EF and moderate as noted above. Will repeat in AM.
-Some LE edema noted. Weight appears stable, at baseline. May consider a single dose of IV lasix, however will hold off for now w/ creat up to 1.6.
-Continue lipitor 40mg daily.
HPI: Michoacano is an 89 year old male with PMH of permanent atrial fibrillation, chronic HFpEF, CAD, HTN, HLD, DM2, dementia, and GERD. He presented to [facility] for evaluation after he was noted to have blood around his cuba catheter as well as lack of
urinary output. On arrival to ER, noted to be in rapid atrial fibrillation. He recently had similar ER visit 08/08/2024 with clogged cuba catheter and HR at that time was elevated as well. During prior ER visit, he was given a single dose of 10mg
IV cardizem and HRs improved. No changes were made to OP medications. On arrival to ER today, 08/21/2024, HRs were in the 130s. Patient was asymptomatic with this and denies any chest pain, palpitations, dizziness, lightheadedness, or SOB. He was
started on cardizem gtt and is admitted. Cardiology consulted for evaluation. Cardizem running @ 10 and rates improved, now in the 90s.
--- NOTE | 2024-08-21 16:00 | EDRN ---
Per Dr. Kruse who was in to see pt at this time, 3-way cuab 20 Fr was changed tyo #22 Fr cuba at this time.
[2024-08-21 16:58] LABS: Urine Albumin 2+ (Neg - Trace); Urine Bilirubin Negative (Negative); Urine Character Bloody (Clear); Urine Color Red; Urine Glucose Negative (Negative); Urine Ketone Negative (Negative); Urine Leukocyte 1+ (Negative); Urine Nitrite Negative (Negative); Urine Occult Blood 4+ (Negative); Urine Specific Gravity 1.015 (<1.030); Urine Urobilinogen Negative (Neg - 1+)
--- NOTE | 2024-08-21 17:28 | W.PN.URO.CBU ---
Today's Communication / Plan
-
TRY AND SLOW DOWN CBI BY AM URINE FREE OF CLOTS
Assessment / Plan
-
YORK \\NOW CLEAR PT WUITH DILEMMA OF A FIB AND TO PREVENT CVA IS ION ELIQUIS WHICH IS A[CAUSING HEAMTUIRA PREFR MED TX OF AFIB SUCH TO COME OFF ELIQUIS CURRENTLY YORK CLEAR MARYCRUZ HOLD CBI IN AM AND CHECK FOR CLOTS
Diagnosis
-
Date of Service: August 21, 2024
-
Patient Diagnosis:URINARY RETENTION WITH OBSTRUCTED YORK. ON ELIQUIS WITH HEMATURIA
Post Op Day:
Subjective
-
DEMENTIA
Objective
-
Vital Signs
Temp Pulse Resp BP Pulse Ox
98.2 F 90 18 129/80 94
08/21/24 12:56 08/21/24 15:03 08/21/24 15:03 08/21/24 15:03 08/21/24 15:03
Intake and Output
08/20/24 08/21/24 08/22/24
06:59 06:59 06:59
Output Total 1075 / 1075
Balance -1075 / -1075
Output:
True Urine Output from CBI 1075 / 1075
Laboratory Results
08/21/24 14:07
08/21/24 14:07
Review of Systems
-
Unable to obtain full review of systems at this time due to: Dementia
: Difficulty Voiding and Bleeding
Physical Exam
-
General - well developed, well nourished, no acute distress
Chest - clear bilaterally
Abdomen - soft, non-tender, positive bowel sounds, no CVAT, no incisional pain or distention
Genitalia - normal
Rectal - normal
Skin - warm & dry with no rash
Neuro - AOx3, no motor deficits
Extremities - no clubbing, no cyanosis, no edema
Incision - clean, dry
Dressing - clean, dry, intact
Care Review
Data Reviewed
Discussed with: Hospitalist and Nursing
CT Scan: Image Pers Reviewed
--- NOTE | 2024-08-21 17:38 | EDRN ---
TT sent to Dr. Batista and Dr. Zaldivar about admission to [facility] w/ order for titratable cardizem at this time.
--- NOTE | 2024-08-21 19:01 | EDRN ---
64/55 is not a real BP and accidentally saved. Pt was attempting to get OOB.
[2024-08-21 19:09] LABS: Urine Red Blood Cell >100 /HPF (0-2)
[2024-08-21 21:32] LABS: Glucose - Point of Care 173 mg/dl (70-99)
[2024-08-21] MEDS: TOPROL XL PO (22:07)
--- NOTE | 2024-08-21 22:08 | PTCARENOTE ---
Patient received from ED in [facility] around 2100. Patient transferred to bed. Diltiazem gtt infusing at 10mg/hr upon arrival, titrated down to 5mg/hr per protocol/order. CBI infusing, urine clear yellow and free of clots. Patient on room air,
oxygen saturation 97-99%. Patient denies pain, denies palpitations. Alert to self only, history of dementia, lives in memory care unit. Bed alarm in place and armed. Atrial fibrillation on the monitor, rate in the 70s-80s. Patient educated relationship counselor
manrique use, call manrique is within reach. Bed in lowest position, wheels locked. Admission completed.
[2024-08-21] MEDS: TRUSOPT 2% OPHTHALMIC SOLUTION 1 DROP RIGHT EYE (22:18)
[2024-08-21] MEDS: ATIVAN 0.5 MG PO (22:33)
[2024-08-21] MEDS: LIPITOR 40 MG PO (22:33)
[2024-08-21] MEDS: HEPARIN 5000 UNITS SC (22:41)
[2024-08-22] VITALS (9 sets, daily range): BP systolic 101–124; BP diastolic 42–82; PULSE 76; O2SAT 96; BMI 32.2
[2024-08-22] MEDS: CARDIZEM 125 IV (02:51)
[2024-08-22 03:24] LABS: % Basophils 0.3 % (0-2); % Eosinophils 2.4 % (0-6); % Immature Granulocytes 0.1 % (0-0.5); % Lymphocytes 23.6 % (20.5-51.1); % Monocytes 13.4 % (1.7-9.3); % Neutrophils 60.2 % (42.2-75.2); Absolute Eosinophils 0.2 10^3/uL (0-0.7); Absolute Lymphocytes 1.7 10^3/uL (1.2-3.4); Absolute Monocytes 0.9 10^3/uL (0.1-0.6); Absolute Neutrophils 4.2 10^3/uL (1.4-6.5); Hemoglobin 10.9 g/dL (13.0-18.0); Mean Corpuscular Hgb 28.2 pg (27.0-31.0); Mean Corpuscular Volume 85.5 fL (80.0-94.0); Mean Platelet Volume 12.3 fL (7.4-10.4); Nucleated Red Blood Cells % 0 % (-); Platelet Count 125 10^3/uL (130-400); Red Blood Cell Count 3.86 10^6/uL (4.70-6.10)
[2024-08-22 03:34] LABS: INR 1.41; PT 17.5 Sec (11.4-14.6)
[2024-08-22 03:42] LABS: Blood Urea Nitrogen 23 mg/dl (9-20); Calcium 8.1 mg/dl (8.4-10.2); Carbon Dioxide 28 mmol/L (22-30); Chloride 107 mmol/L (98-107); Estimated Creatinine Clearance 39 ml/min; Glucose 110 mg/dl (70-99); Magnesium 1.2 mg/dl (1.6-2.3); Potassium 3.7 mmol/L (3.5-5.1); Sodium 141 mmol/L (135-145); eGFR 48.65
[2024-08-22 07:37] LABS: Glucose - Point of Care 130 mg/dl (70-99)
[2024-08-22] MEDS: TOPROL XL 100 MG PO (08:37)
[2024-08-22] MEDS: VITAMIN D3 (cholecalciferol) 50 MCG PO (08:37)
[2024-08-22] MEDS: TRUSOPT 2% OPHTHALMIC SOLUTION 1 DROP RIGHT EYE ×2 (08:38→20:18)
[2024-08-22] MEDS: HEPARIN 5000 UNITS SC (08:42)
[2024-08-22] MEDS: NOVOLOG FLEXPEN-LOW RESISTANCE SC ×2 (08:42→18:18)
[2024-08-22] MEDS: PROTONIX 40 MG PO (08:44)
[2024-08-22] MEDS: ATIVAN 0.5 MG PO (08:44)
--- NOTE | 2024-08-22 08:55 | W.PN.URO.CBU ---
Today's Communication / Plan
-
NO CBI KEEP YORK
Assessment / Plan
-
YORK \\NOW CLEAR PT WUITH DILEMMA OF A FIB AND TO PREVENT CVA IS ION ELIQUIS WHICH IS A[CAUSING HEAMTUIRA PREFR MED TX OF AFIB SUCH TO COME OFF ELIQUIS CURRENTLY YORK CLEAR MARYCRUZ HOLD CBI IN AM AND CHECK FOR CLOTS
Diagnosis
-
Date of Service: August 22, 2024
-
Patient Diagnosis:
Post Op Day:
Patient Diagnosis:URINARY RETENTION WITH OBSTRUCTED YORK. ON ELIQUIS WITH HEMATURIA
Post Op Day:
Subjective
-
DEMENTIA
Objective
-
Vital Signs
Temp Pulse Resp BP Pulse Ox
98.1 F 89 14 117/59 94
08/22/24 06:54 08/22/24 06:53 08/22/24 06:54 08/22/24 06:53 08/22/24 06:54
Intake and Output
08/21/24 08/22/24 08/23/24
06:59 06:59 06:59
Intake Total 2520 / 2520
Output Total 4875 / 4875
Balance -2355 / -2355
Intake:
Oral fluids 720 / 720
IV fluids (Total) 50 / 50
Diltiazem 50 / 50
Amount instilled into Urinary 1750 / 1750
Drain (Total)
Output:
Urinary Drain Output (Total) 2450 / 2450
True Urine Output from CBI 2425 / 2425
Laboratory Results
08/22/24 03:03
08/22/24 03:03
Review of Systems
-
: Difficulty Voiding
Physical Exam
-
General - well developed, well nourished, no acute distress
Chest - clear bilaterally
Abdomen - soft, non-tender, positive bowel sounds, no CVAT, no incisional pain or distention
Genitalia - normal
Rectal - normal
Skin - warm & dry with no rash
Neuro - AOx3, no motor deficits
Extremities - no clubbing, no cyanosis, no edema
Incision - clean, dry
Dressing - clean, dry, intact
Care Review
Data Reviewed
Discussed with: Nursing
[2024-08-22 08:56] LABS: Glycohemoglobin (HgbA1c) 6.9 % (4.0-5.6)
--- NOTE | 2024-08-22 09:08 | CARDSERVLU ---
Echocardiogram with Lumason completed after protocol screening completed. Allergies verified.
Patent IV site: _R AC____
IV site flushed with 0.9% NaCl pre and post administration.
Diluted bolus method utilized to enhance visualization of ventricular mixon.
Total volume given: __2.5__ mL
Patient tolerated all procedures well without complications.
--- NOTE | 2024-08-22 09:44 | W.PN.CARDCBS ---
Addendum entered and electronically signed by Terrance Brower MD 08/22/24 10:16:
I saw and examined the patient.
The Data Storage Specialist's note was reviewed and I agree with the note.
Comment:
GEN: No distress, awake
HEENT: supple, anicteric, mmm
LUNGS: CTA, no wheezes/rales
CV: Irreg, S1/S2, 1/6 syst LSB, no gallop
ABD: soft, BS+, NT/ND
EXT: No edema
NEURO: Gross non-focal
SKIN: No rash
Plan:
Ventricular rates are controlled. Stop IV Cardizem. Continue Toprol 100 mg in a.m. and 50 mg in p.m.
Hemoglobin overall stable at 10.9. Would hold Eliquis for 1 week and then restart at 2.5 mg p.o. twice daily as long as hemoglobin is stable.
He clearly is at high risk for stroke with permanent A-fib, age, heart failure, CAD, diabetes and hypertension.
Original Note:
Today's Communication / Plan
-
stop IV cardizem gtt
continue increased dose po toprol
eliquis remains on hold, discuss timing of resuming with urology
Impression / Plan
-
PCP: Dr. Nicole
Buckle Attaching Machine Operator: Dr. KELSIE Jasso
Impression
Cuba catheter obstruction
Permanent atrial fibrillation w/ RVR
Chronic Eliquis OAC
Chronic HFpEF
CAD
s/p remote rotational atherectomy of LAD
HTN
HLD
DM2
h/o R renal artery stent 2002
s/p R carotid endarterectomy 2008
Dementia
GERD
Echo 10/19/2022: EF 60-65%, mild cLVH, MAC w/ mild MR, moderate with peak/mean gradients 24/15 mmHg, trace AI
Echo 08/22/2023: Study pending.
Plan:
-Presented with Cuba catheter obstruction and bleeding around cuba catheter. Urology recommending changing catheter from 20 Fr to 22 Fr.
-currently with clear urine in cuba. CBI on hold. urology following
-eliquis remains on hold. will need to discuss resuming with urology. will need to follow renal function as presently borderline for lower dosing based on age and Cr.
-currently in rate controlled afib, which is known and permanent. will stop IV cardizem gtt and continue increased dose toprol 100mg QAM and 50mg QPM.
-replete mag
-echo pending
HPI: Michoacano is an 89 year old male with PMH of permanent atrial fibrillation, chronic HFpEF, CAD, HTN, HLD, DM2, dementia, and GERD. He presented [facility] after he was noted to have blood around his cuba catheter as well as lack of
urinary output. On arrival to ER, noted to be in rapid atrial fibrillation. He recently had similar ER visit 08/08/2024 with clogged cuba catheter and HR at that time was elevated as well. During prior ER visit, he was given a single dose of 10mg
IV cardizem and HRs improved. No changes were made to OP medications. On arrival to ER today, 08/21/2024, HRs were in the 130s. Patient was asymptomatic with this and denies any chest pain, palpitations, dizziness, lightheadedness, or SOB. He was
started on cardizem gtt and is admitted. Cardiology consulted for evaluation. Cardizem running @ 10 and rates improved, now in the 90s.
Progress Note - Buckle Attaching Machine Operator
Subjective
Date of Service: August 22, 2024
confused. no pain
Objective
Labs:
08/22/24 03:03
08/22/24 03:03
Labs
Hgb 10.9 g/dL (13.0-18.0) L 08/22/24 03:03
Hct 33.0 % (39.0-52.0) L 08/22/24 03:03
Plt Count 125 10^3/uL (130-400) L 08/22/24 03:03
PT 17.5 Sec (11.4-14.6) H 08/22/24 03:03
INR 1.41 08/22/24 03:03
Sodium 141 mmol/L (135-145) 08/22/24 03:03
Potassium 3.7 mmol/L (3.5-5.1) 08/22/24 03:03
BUN 23 mg/dl (9-20) H 08/22/24 03:03
Creatinine 1.4 mg/dL (0.7-1.3) H 08/22/24 03:03
Glucose 110 mg/dl (70-99) H 08/22/24 03:03
Vital Signs and I&O:
Vital Signs
Temp Pulse Resp BP Pulse Ox
98.1 F 89 14 117/59 97
08/22/24 06:54 08/22/24 06:53 08/22/24 06:54 08/22/24 06:53 08/22/24 08:00
Vital Signs
Temp Pulse Resp BP Pulse Ox
98.1 F 89 14 117/59 97
08/22/24 06:54 08/22/24 06:53 08/22/24 06:54 08/22/24 06:53 08/22/24 08:00
Intake & Output
08/20/24 08/21/24 08/22/24 08/23/24
07:59 07:59 07:59 07:59
Intake Total 2520 / 2520
Output Total 4875 / 4875
Balance -2355 / -2355
Physical Exam
Physical Exam
GEN: No distress, awake, alert, confused about medical issues
HEENT: supple, anicteric, mmm, eomi
LUNGS: CTA B/L, no wheezes/rales
CV: Irreg, S1/S2, 1/6 syst LSB
ABD: soft, BS+, NT/ND
EXT: No cyanosis, clubbing, edema
NEURO: Gross non-focal
SKIN: Warm, pink, dry. No rash
: cuba with clear output
--- NOTE | 2024-08-22 10:00 | PTCARENOTE ---
Pt received this am with CBI infusing slowly. Dr Kruse in and ordered the CBI to be discontinued which was stopped at 0800. IV cardizem stopped at 1000 as ordered by cardiology. Afib controlled, rate in the 70's to 80's.
[2024-08-22] MEDS: MAGNESIUM SULFATE 50 IV (10:12)
--- NOTE | 2024-08-22 11:22 | CM ---
Addendum entered by Gladis Sosa RN 08/22/24 15:12:
PT eval recommending Home PT. I spoke to nurse at [facility], they are requesting PT through [facility]. Referral sent.
Original Note:
Chart reviewed. 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 Patient ambulates with a rolling walker and has an aide that also assists patient at [facility]. Plan is for the patient to return to [facility]. Patient will need a
wheelchair van or family will transport patient back to [facility]. CM to follow
[2024-08-22 12:25] LABS: Glucose - Point of Care 158 mg/dl (70-99)
[2024-08-22] MEDS: NOVOLOG FLEXPEN-LOW RESISTANCE 1 UNITS SC (12:28)
--- NOTE | 2024-08-22 12:51 | W.PN.HOSP.TC ---
Addendum entered and electronically signed by Lynne Zaldivar MD 08/22/24 14:11:
total time spent 51 min
Addendum entered and electronically signed by Lynne Zaldivar MD 08/22/24 14:07:
I personally performed a history and physical exam of the patient and discussed management with the resident. I reviewed the resident's note and agree with the documented findings and plan of care HPI/CC.
A/P:
# Hematuria , resolved
# History of BPH with chronic indwelling catheter
Casey replaced with 20 Fr in ED (08/21/2024)
Hematuria resolved following CBI
Uro on board
# AB, suspect post renal
Admission creatinine 1.6, improved to 1.4 today, baseline 1.2
Monitor serum creatinine
# Atrial fibrillation with rapid ventricular response
weaning Cardizem drip
Continue prior to admission Toprol 100 mg in a.m. and 50 mg in p.m.
Holding prior to admission Eliquis, may consider resuming with resolved hematuria
Other medical conditions
# Hyperlipidemia-continue statins
# Hypertension-continue meds as able
# Diabetes-carb controlled diet, insulin sliding scale
# GERD-continue PPI
# Dementia-continue Bexpiprazole
CODE STATUS-DNR
DVT prophylaxis subcut heparin 5000 units twice daily
Original Note:
Today's Communication/Plan
-
Replete magnesium
Off Cardizem drip, monitor for 24 hours on Lopressor and plan discharge
Hold Eliquis for 1 week as suggested by cardiology
Assessment / Plan
Assessment / Plan
IMPRESSION:
Patient is a 89-year-old male with history of dementia, BPH, CKD, prostate hyperplasia, diabetes mellitus, hypertension, coronary artery disease who presented from the assisted [facility] with hematuria and catheter issues. He had 2 prior
admissions in July for urinary issues/hematuria/urinary retention. Continuous bladder irrigation started, clear urine in bag, no further hematuria. Does not provide much history because of his dementia, knows his name, denies any complaints.
He does have atrial fibrillation with rapid ventricular response, started on Cardizem drip. Transferred to telemetry.
ASSESSMENT/PLAN:
# Hematuria/acute urinary retention
Patient presented with hematuria, and lack of urine output
History of multiple admissions for similar complaints
History of BPH, CKD, chronic indwelling catheter
Continuous bladder irrigation done, no further hematuria, CBI stopped, catheter still in place
Urology consult appreciated-
# AB
Patient has a baseline creatinine of 1-1.2
Patient serum creatinine is 1.6, most likely secondary to urinary retention
Creatinine trending down, continue to monitor
# Atrial fibrillation with rapid ventricular response
Patient was started on Cardizem infusion
Cardiology consult appreciated-recommended to increase dose of metoprolol from 100 mg daily to 100 mg in morning and 50 mg at night
Ventricular rates are controlled.
Cardizem infusion stopped by cardiology
Cardiology suggested to hold Eliquis for 1 week and then restart at 2.5 mg p.o. twice daily as long as hemoglobin is stable.
# Hypomagnesemia
Patient's magnesium level 1.2
Replace magnesium and repeat in a.m.
# Other medical conditions
Hyperlipidemia-continue statins
Hypertension-continue meds as able
Diabetes-carb controlled diet, insulin sliding scale
GERD-continue PPI
Dementia-continue Bexpiprazole
CODE STATUS-DNR
DVT prophylaxis subcut heparin 5000 units twice daily-
Anticipated Discharge: Within 24 hours
Subjective/Interval History
-
Date of Service: August 22, 2024
89-year-old male, history of dementia, no active issues at this time as per the patient
Objective Data
-
Labs:
Laboratory Results
08/22/24
03:03
WBC 7.0
Hgb 10.9 L
Hct 33.0 L
Plt Count 125 L
PT 17.5 H
INR 1.41
Sodium 141
Potassium 3.7
Chloride 107
Carbon Dioxide 28
BUN 23 H
Creatinine 1.4 H
Glucose 110 H
Calcium 8.1 L
Vital Signs:
Vital Signs
Temp Pulse Resp BP Pulse Ox
98.2 F 89 16 117/59 97
08/22/24 12:03 08/22/24 06:53 08/22/24 12:03 08/22/24 06:53 08/22/24 12:03
I&O
08/21/24 08/22/24 08/23/24
06:59 06:59 06:59
Intake Total 2520 / 2520
Output Total 4875 / 4875
Balance -2355 / -2355
Review of Systems
-
All other systems: Reviewed and negative
Physical Exam
-
General: Well Developed, Well Nourished and No Apparent Distress
HEENT: Normocephalic, Atraumatic and Moist Mucous Membranes
Respiratory: Clear to Auscultation
Cardiac: Regular Rhythm and S1/S2
GI: Soft, Nontender and Normal Bowel Sounds
Musculoskeletal: No Clubbing, No Cyanosis and No Edema
Skin: Warm
Neuro: Awake and Other (Confused and disoriented because of his dementia)
Psych: Apparent Dementia
--- NOTE | 2024-08-22 14:29 | CON.ID ---
Consultation
-
Date/Time Consultation Requested: August 22, 2024 1415
Date/Time Consultation Performed: August 22, 2024 1430
Requesting Provider: Dr. Constantine Batista
Performing Provider: Dr. Mee Loyola
Reason for Consultation: Diphtheroids in urine
Chief Complaint / Past History
Chief Complaint
Blood in urine
History of Present Illness
History obtained from review medical records since patient has Alzheimer's dementia and unable to provide any meaningful history. He is a 89-year-old male with dementia from nursing home facility with history of atrial fibrillation on Eliquis,
BPH with chronic indwelling [place] catheter, CAD who presented to the hospital August 21 due to gross hematuria with decreased urine output due to clots. 8 three-way Cuba placed for irrigation with resolution of hematuria. Urine culture positive
for diphtheroids. Of note this is his third episode of gross hematuria requiring ED visits including July 24 and August 08 both times treated with levofloxacin and urine cultures resulted as diphtheroid. Patient without any fevers or chills.
Leukocytosis resolved the next day. Urology is following him. Today patient denies any symptoms of chills, sweats, nausea, abdominal pain, diarrhea, flank pain, or suprapubic pain.
Past History
Additional Past Medical History:
Alzheimer's dementia
DM
Afib on Eliquis
HFpEF
CAD
HTN
BPH
Dyslipidemia
Urinary retention with chronic cuba
CKD
Right renal artery stent
R CEA
Allergy History:
Cephalosporins Allergy (Verified 08/21/24 12:55)
possible cross-allergy wtih PCN
penicillin G Allergy (Verified 08/21/24 12:55)
Unknown
Penicillins Allergy (Verified 08/21/24 12:55)
claims PCN allergy
wasp stings Allergy (Uncoded 08/21/24 12:55)
Unknown
Medications Reviewed: Yes
Current Antibiotics:
None
Social History
Tobacco: Non-Smoker
Alcohol: None
Drug: None
Living: [facility])
Family History
Family History: Not Pertinent
Review of Systems
Review of Systems
General: Negative Fever, Chills or Change in Appetite
HEENT: Negative Sinus Problems or Headache
Respiratory: Negative Dyspnea or Cough
Gasteroenterology: Negative Nausea, Vomiting or Diarrhea
Genital / Urological: Negative Dysuria or Flank Pain
Endocrine: Negative Weakness
Neurological: Negative Dizziness
All systems: All other systems were reviewed and were negative
Vital Signs
Temp Pulse Resp BP Pulse Ox
98.2 F 86 16 114/71 97
08/22/24 12:03 08/22/24 13:00 08/22/24 12:03 08/22/24 13:00 08/22/24 12:03
Physical Exam
Physical Exam
Constitutional: No Acute Distress and Comfortable
Eyes: No Conjunctival Hemorrhage and Sclera Anicteric
Cardiovascular: Irregular Rate and S1/S2
Pulmonary: Clear
Gastrointestinal: Soft, Non Tender, Non Distended and Normal Bowel Sounds
Genito-Urinary: [place] and Clear Urine; Negative CVA Tenderness
Extremities: Negative Edema
Neurological: Awake and Alert
Lab / Diagnostic Study Results
08/22/24 03:03
08/22/24 03:03
Abs Immat Gran (auto) 0.0 10^3/uL (0-0.05) 08/22/24 03:03
Absolute Neuts (auto) 4.2 10^3/uL (1.4-6.5) 08/22/24 03:03
Absolute Lymphs (auto) 1.7 10^3/uL (1.2-3.4) 08/22/24 03:03
Absolute Monos (auto) 0.9 10^3/uL (0.1-0.6) H 08/22/24 03:03
Absolute Basos (auto) 0.0 10^3/uL (0-0.2) 08/22/24 03:03
Immature Gran % 0.1 % (0-0.5) 08/22/24 03:03
Neutrophils % 60.2 % (42.2-75.2) 08/22/24 03:03
Lymphocytes % 23.6 % (20.5-51.1) 08/22/24 03:03
Monocytes % 13.4 % (1.7-9.3) H 08/22/24 03:03
Eosinophils % 2.4 % (0-6) 08/22/24 03:03
Basophils % 0.3 % (0-2) 08/22/24 03:03
PT 17.5 Sec (11.4-14.6) H 08/22/24 03:03
INR 1.41 08/22/24 03:03
Ur Squamous Epith Cells /LPF (Few) 08/21/24 16:14
Microbiology Results
Micro:
08/21/24 16:14 Urine Culture - Final
Urine Diptheroids
08/21/24 21:36 MRSA Screen - Pending
Nose
Assessment / Plan
# Recurrent gross hematuria due to anticoagulation, now resolved with CBI
# Chronic indwelling cuba catheter
# Diphtheroid bacteruria
- pt asymptomatic
- diphtheroids are not considered urinary pathogens. suspect contaminant/colonization
- no need for abx.
- ID will sign off.
[2024-08-22 17:42] LABS: Glucose - Point of Care 105 mg/dl (70-99)
[2024-08-22] MEDS: ELIQUIS 5 MG PO (20:16)
[2024-08-22] MEDS: TOPROL XL 50 MG PO (20:16)
[2024-08-22 21:16] LABS: Glucose - Point of Care 98 mg/dl (70-99)
[2024-08-22] MEDS: LIPITOR PO (23:53)
[2024-08-23] VITALS (10 sets, daily range): BP systolic 110–147; BP diastolic 76–101
--- NOTE | 2024-08-23 03:00 | PTCARENOTE ---
Pt received at change of shift. Afib on tele with HR 80s-90s. AAOx1 to self only, pt forgetful and agitated at times, bed alarm activated for pt safety. At 2300, pt agitated when awoken for vital signs. Unable to obtain vitals at the time due to
pt agitation. Vitals signs obtained at midnight when pt calmed down. Catheter care completed. Call manrique within reach.
[2024-08-23 06:15] LABS: % Basophils 0.4 % (0-2); % Immature Granulocytes 0.2 % (0-0.5); % Monocytes 13.9 % (1.7-9.3); % Neutrophils 56.5 % (42.2-75.2); Absolute Eosinophils 0.3 10^3/uL (0-0.7); Absolute Lymphocytes 1.2 10^3/uL (1.2-3.4); Absolute Monocytes 0.7 10^3/uL (0.1-0.6); Absolute Neutrophils 2.9 10^3/uL (1.4-6.5); Hematocrit 35.2 % (39.0-52.0); Hemoglobin 11.3 g/dL (13.0-18.0); Mean Corp Hgb Conc. 32.1 g/dL (33.0-37.0); Mean Corpuscular Hgb 27.8 pg (27.0-31.0); Mean Corpuscular Volume 86.7 fL (80.0-94.0); Mean Platelet Volume 12.4 fL (7.4-10.4); Nucleated Red Blood Cells % 0 % (-); Platelet Count 117 10^3/uL (130-400); Red Blood Cell Count 4.06 10^6/uL (4.70-6.10); Red Cell Dist. Width 14.6 % (11.5-14.5)
[2024-08-23 06:32] LABS: Blood Urea Nitrogen 21 mg/dl (9-20); Calcium 8.3 mg/dl (8.4-10.2); Carbon Dioxide 24 mmol/L (22-30); Chloride 106 mmol/L (98-107); Estimated Creatinine Clearance 50 ml/min; Glucose 117 mg/dl (70-99); Magnesium 1.5 mg/dl (1.6-2.3); Sodium 138 mmol/L (135-145); eGFR > 60.00
--- NOTE | 2024-08-23 07:41 | W.PN.CARDCBS ---
Addendum entered and electronically signed by Terrance Brower MD 08/23/24 09:59:
I saw and examined the patient.
The System Software Programmer's note was reviewed and I agree with the note.
Comment:
GEN: No distress, awake, Ox3
HEENT: supple, anicteric, mmm
LUNGS: CTA, no wheezes/rales
CV: Irreg, S1/S2, 08/21 syst LSB, no gallop
ABD: soft, BS+, NT/ND
EXT: No edema
NEURO: Gross non-focal
SKIN: No rash
plan:
No further hematuria. Will restart Eliquis 2.5 mg twice daily in 1 week. Hemoglobin at 11.3.
A-fib remains relatively well rate controlled. Continue Toprol 100 mg in a.m. and 50 mg in p.m.
Okay for discharge from cardiology standpoint
Original Note:
Today's Communication / Plan
-
resume eliquis at lower dose of 2.5mg BID in 1 week
follow for recurrence of hematuria
toprol 100mg QAM and 50mg QPM
replete mag
will arrange OP cardiac follow up. ok for DC today from cardiac standpoint
Impression / Plan
-
PCP: Dr. Nicole
System Trainer: Dr. KELSIE Jasso
Impression
Cuba catheter obstruction
Permanent atrial fibrillation w/ RVR
Chronic Eliquis OAC
Chronic HFpEF
CAD
s/p remote rotational atherectomy of LAD
HTN
HLD
DM2
h/o R renal artery stent 2002
s/p R carotid endarterectomy 2008
Dementia
GERD
Echo 10/19/2022: EF 60-65%, mild cLVH, MAC w/ mild MR, moderate with peak/mean gradients 24/15 mmHg, trace AI
Echo 08/22/2023: EF 55 to 60%, mild concentric LVH, moderate AAS with peak/mean gradients 35/23 mmHg, ALESHIA 0.8 cm�, mild TR, PAP 41 mmHg
Plan:
-Presented with [place] catheter obstruction and bleeding around cuba catheter. currently with clear urine in cuba. urology following
-hgb stable at 11.3. eliquis on hold at present. d/w family yesterday and will plan to resume eliquis at lower dosing of 2.5mg BID in 1 week based on age and fluctuating renal function (was 1.6 on arrival, typically runs between 1.1 and 1.4 by
review of prior records), as well as hematuria issues
-remains in rate controlled afib on review of tele, which is known and permanent. continue increased dose toprol 100mg QAM and 50mg QPM.
-echo with results as above
-replete mag
-will arrange OP cardiac follow up
HPI: Michoacano is an 89 year old male with PMH of permanent atrial fibrillation, chronic HFpEF, CAD, HTN, HLD, DM2, dementia, and GERD. [facility] after he was noted to have blood around his cuba catheter as well as lack of
urinary output. On arrival to ER, noted to be in rapid atrial fibrillation. He recently had similar ER visit 08/08/2024 with clogged cuba catheter and HR at that time was elevated as well. During prior ER visit, he was given a single dose of 10mg
IV cardizem and HRs improved. No changes were made to OP medications. On arrival to ER today, 08/21/2024, HRs were in the 130s. Patient was asymptomatic with this and denies any chest pain, palpitations, dizziness, lightheadedness, or SOB. He was
started on cardizem gtt and is admitted. Cardiology consulted for evaluation. Cardizem running @ 10 and rates improved, now in the 90s.
Progress Note - System Trainer
Subjective
Date of Service: August 23, 2024
no complaints
Objective
Labs:
08/23/24 05:39
08/23/24 05:39
Labs
Hgb 11.3 g/dL (13.0-18.0) L 08/23/24 05:39
Hct 35.2 % (39.0-52.0) L 08/23/24 05:39
Plt Count 117 10^3/uL (130-400) L 08/23/24 05:39
PT 17.5 Sec (11.4-14.6) H 08/22/24 03:03
INR 1.41 08/22/24 03:03
Sodium 138 mmol/L (135-145) 08/23/24 05:39
Potassium 4.0 mmol/L (3.5-5.1) 08/23/24 05:39
BUN 21 mg/dl (9-20) H 08/23/24 05:39
Creatinine 1.1 mg/dL (0.7-1.3) 08/23/24 05:39
Glucose 117 mg/dl (70-99) H 08/23/24 05:39
Vital Signs and I&O:
Vital Signs
Temp Pulse Resp BP Pulse Ox
97.8 F 99 16 136/93 94
08/23/24 05:27 08/23/24 05:27 08/23/24 05:27 08/23/24 05:27 08/23/24 05:27
Vital Signs
Temp Pulse Resp BP Pulse Ox
97.8 F 99 16 136/93 94
08/23/24 05:27 08/23/24 05:27 08/23/24 05:27 08/23/24 05:27 08/23/24 05:27
Intake & Output
08/20/24 08/21/24 08/22/24 08/23/24
07:59 07:59 07:59 07:59
Intake Total 2520 / 2520
Output Total 4875 / 4875 1700 / 1700
Balance -2355 / -2355 -1700 / -1700
Physical Exam
Physical Exam
GEN: No distress, awake, alert, oriented x1
HEENT: supple, anicteric, mmm, eomi
LUNGS: CTA B/L, no wheezes/rales
CV: Irreg, S1/S2, / syst LSB
ABD: soft, BS+, NT/ND
EXT: No cyanosis, clubbing, edema
NEURO: Gross non-focal
SKIN: Warm, pink, dry. No rash
: cuba with clear output
[2024-08-23] MEDS: ATIVAN 0.5 MG PO (07:49)
[2024-08-23] MEDS: VITAMIN D3 (cholecalciferol) 50 MCG PO (07:49)
[2024-08-23] MEDS: TOPROL XL 100 MG PO (07:49)
[2024-08-23] MEDS: PROTONIX 40 MG PO (07:49)
[2024-08-23] MEDS: NOVOLOG FLEXPEN-LOW RESISTANCE SC (08:01)
[2024-08-23 08:02] LABS: Glucose - Point of Care 105 mg/dl (70-99)
[2024-08-23] MEDS: ELIQUIS 2.5 MG PO (08:45)
[2024-08-23] MEDS: TRUSOPT 2% OPHTHALMIC SOLUTION 1 DROP RIGHT EYE (08:45)
--- NOTE | 2024-08-23 08:54 | PTCARENOTE ---
Assumed care, patient sleeping in bed, eyes closed, arouses easily to name, confused to place, time and situation. A-F-b HR 99-114. Casey to gravity, pale yellow urine. Bed alarm audible, call manrique in reach
--- NOTE | 2024-08-23 09:16 | W.PN.HOSP.TC ---
Addendum entered and electronically signed by Lynne Zaldivar MD 08/23/24 15:57:
total DC time 38 min
Addendum entered and electronically signed by Lynne Zaldivar MD 08/23/24 13:34:
I personally performed a history and physical exam of the patient and discussed management with the resident. I reviewed the resident's note and agree with the documented findings and plan of care HPI/CC.
A/P:
# Hematuria , resolved
# History of BPH with chronic indwelling catheter
Casey replaced with 20 Fr in ED (08/21/2024)
Hematuria resolved following CBI
Uro on board
# AB, suspect post renal, resolved
creatinine 1.6 -> 1.1
# Atrial fibrillation with rapid ventricular response
Off Cardizem drip
Continue prior to admission Toprol 100 mg in a.m. and 50 mg in p.m added
resumed reduced dose Eliquis at 2.5 mg BID with resolved hematuria
Other medical conditions
# Hyperlipidemia-continue statins
# Hypertension-continue meds as able
# Diabetes-carb controlled diet, insulin sliding scale
# GERD-continue PPI
# Dementia-continue Bexpiprazole
CODE STATUS-DNR
DVT prophylaxis Eliquis
Dispo: Return to nursing facility
Original Note:
Today's Communication/Plan
-
Replete magnesium
Plan discharge
Assessment / Plan
Assessment / Plan
IMPRESSION:
Patient is a 89-year-old male with history of dementia, BPH, CKD, prostate hyperplasia, diabetes mellitus, hypertension, coronary artery disease who presented from the half-way [facility] with hematuria and catheter issues. He had 2 prior
admissions in July for urinary issues/hematuria/urinary retention. Continuous bladder irrigation started, clear urine in bag, no further hematuria. Does not provide much history because of his dementia, knows his name, denies any complaints.
He did have atrial fibrillation with rapid ventricular response, started on Cardizem drip. Transferred to IVU.
ASSESSMENT/PLAN:
# Hematuria/acute urinary retention
Patient presented with hematuria, and lack of urine output
History of multiple admissions for similar complaints
History of BPH, CKD, chronic indwelling catheter
Continuous bladder irrigation done, no further hematuria, CBI stopped, catheter still in place
Urology consult appreciated-
# AB with transient dec in eGFR
Patient has a baseline creatinine of 1-1.2
Patient serum creatinine is 1.6, most likely secondary to urinary retention
Cr1.1-AB resolved (08/23/2024)
# Atrial fibrillation with rapid ventricular response
Patient was started on Cardizem infusion
Cardiology consult appreciated-recommended to increase dose of metoprolol from 100 mg daily to 100 mg in morning and 50 mg at night
Ventricular rates are controlled.
Cardizem infusion stopped by cardiology
Resume eliquis at 2.5mg twice daily on discharge.
# Hypomagnesemia
Replete magnesium as needed
# Other medical conditions
Hyperlipidemia-continue statins
Hypertension-continue meds as able
Diabetes-carb controlled diet, insulin sliding scale
GERD-continue PPI
Dementia-continue Bexpiprazole
CODE STATUS-DNR
DVT prophylaxis subcut heparin 5000 units twice daily-
Anticipated Discharge: Within 24 hours
Subjective/Interval History
-
Date of Service: August 23, 2024
No active issues,patient feeling well
Objective Data
-
Labs:
Laboratory Results
08/23/24
05:39
WBC 5.0
Hgb 11.3 L
Hct 35.2 L
Plt Count 117 L
Sodium 138
Potassium 4.0
Chloride 106
Carbon Dioxide 24
BUN 21 H
Creatinine 1.1
Glucose 117 H
Calcium 8.3 L
Vital Signs:
Vital Signs
Temp Pulse Resp BP Pulse Ox
97.8 F 99 16 136/93 94
08/23/24 08:00 08/23/24 05:27 08/23/24 08:00 08/23/24 05:27 08/23/24 08:00
I&O
08/22/24 08/23/24 08/24/24
06:59 06:59 06:59
Intake Total 2520 / 2520
Output Total 4875 / 4875 1700 / 1700
Balance -2355 / -2355 -1700 / -1700
Review of Systems
-
All other systems: Reviewed and negative
Physical Exam
-
General: Well Developed, Well Nourished and No Apparent Distress
HEENT: Normocephalic, Atraumatic and Moist Mucous Membranes
Respiratory: Clear to Auscultation
Cardiac: S1/S2, Irregular Rhythm and Other (No murmur or rub)
GI: Soft and Normal Bowel Sounds
Musculoskeletal: No Clubbing, No Cyanosis and No Edema
Neuro: Nonfocal/Grossly Intact
Psych: Apparent Dementia
--- NOTE | 2024-08-23 09:26 | W.DCSUMMARY ---
Documented by User: Constantine Batista MD, Resident 08/23/24 13:15
Discharge Summary
Discharge Data
Date of Admission: 08/21/24
Date of Discharge: 08/23/24
-
Pending Results: No
Hospital Course
Discharging Physician :
Lynne Zaldivar, Constantine Batista
Disposition :
alf/snf
Primary care physician :
Zuhair Nicole
Principal Discharge diagnosis :
Hematuria(resolved)
AB due to blocked catheter (resolved)
A-fib(resolved)
Chronic Discharge diagnosis :
Dementia, GERD, HTN, NIDDM and Other (Chronic indwelling Casey catheter, enlarged prostate, chronic kidney disease, carotid atherosclerosis)
Hospital Course :
Patient is a 89-year-old male with history of dementia, BPH, CKD, prostate hyperplasia, diabetes mellitus, hypertension, coronary artery disease [facility]. He had 2 prior
admissions in July for urinary issues/hematuria/urinary retention. Casey changed (08/23/2024)continuous bladder irrigation started, clear urine in bag, no further hematuria. Hematuria resolved, three-way 22Fr catheter in place as advised by
urology. Patient did have AB with a serum creatinine of 1.6, baseline creatinine of 1-1.2, after catheterization, serum creatinine trended down and AB resolved. In addition patient had atrial fibrillation with rapid ventricular response,
Cardizem infusion started, tapered and stopped after 24 hours. Patient's heart rate is stable, discharge patient on home dose. Does not provide much history because of his dementia, knows his name, denies any complaints.
Patient's Eliquis dose reduced to 2.5 mg twice daily since he had 3 episodes of hematuria in a month.
Discharge Plan
-
Patient Disposition: Fdc/SNF
Discharge Diagnosis/Procedures: Hematuria (resolved)
AB due to blocked catheter (resolved)
A-fib
Condition: Fair
Diet: Regular and Diabetic, Carb Controlled
Activity: As tolerated
Driving Restrictions: As prior to admission
Bathing Restrictions: None
Referrals:
[facility] [Outside]
[facility] [Outside]
Zuhair Nicole MD [Family Provider] - in less than 1 week
Additional Discharge Medication Instructions: Eliquis dose reduced to 2.5 mg twice daily to avoid further bleeding risk by cardiology
additional Lopressor 50 mg at night (in addition to 100 mg during the day) for better heart rate control
Prescriptions:
New
metoprolol succinate 50 mg Tablet Extended Release 24 Hr
50 mg PO DAILY@1999 30 Days Qty: 30 0RF
Continued
acetaminophen 325 mg Tablet
650 mg PO Q6H PRN (Reason: mild pain/fever>101)
Citrucel 500 mg Tablet
2,000 mg PO BID
dorzolamide 2 % drops
1 drp RIGHT EYE BID
cholecalciferol (vitamin D3) [Vitamin D3] 50 mcg (2,000 unit) Capsule
50 mcg PO DAILY
atorvastatin 40 mg Tablet
40 mg PO HS
omeprazole 20 mg Capsule,Delayed Release(Dr/Ec)
20 mg PO DAILY
ondansetron 4 mg Tablet,Disintegrating
4 mg PO Q8H PRN (Reason: nausea/vomiting)
metoprolol succinate 100 mg tablet extended release 24 hr
100 mg PO DAILY
valerian root 500 mg Capsule
1,000 mg PO HS
lorazepam 0.5 mg Tablet
0.5 mg PO DAILY
Rexulti 2 mg Tablet
2 mg PO DAILY
Vyzulta 0.024 % Drops
1 drp RIGHT EYE QPM
Changed
Eliquis 5 mg Tablet
2.5 mg PO BID Qty: 60 0RF
Discharge Orders:
Discharge Patient (As Directed); Ordered 08/23/24
Ordered By: Constantine Batista
Care Plan Goals
Care Plan Goals:
Problem: Readiness for enhanced knowledge related to diagnosis and treatment plan
Goal: Understand your diagnosis and treatment plan needs, including medications if applicable.
Instructions: Know your diagnosis, underlying causes and treatment plan options, including medications if applicable. Consult with your health care team to learn about your diagnosis and treatment plan, including medications if applicable.
Discharge Date and Time
Discharge Date/Time: 08/23/24 14:08
Print Language: EQUATORIAL GUINEAN

Documented by User: Lynne Zaldivar MD 08/23/24 15:57
Discharge Summary
Discharge Data
Date of Admission: 08/21/24
Date of Discharge: 08/23/24
Hospital Course
Discharging Physician :
Lynne Zaldivar Sandal Shahzadi
Disposition :
alf/snf
Primary care physician :
Zuhair Nicole
Principal Discharge diagnosis :
Hematuria (resolved)
AB due to blocked catheter (resolved)
Chronic Discharge diagnosis :
Dementia, GERD, HTN, NIDDM, Chronic indwelling Casey catheter, enlarged prostate, chronic kidney disease, carotid atherosclerosis, Paroxysmal A-fib
Hospital Course :
Patient is a 89-year-old male with history of dementia, BPH, CKD, prostate hyperplasia, diabetes mellitus, hypertension, coronary artery disease who presented from [facility] with hematuria and catheter issues. He had 2 prior admissions
in July for urinary issues/hematuria/urinary retention. Casey was changed this admission on 08/23/2024. He was started with continuous bladder irrigation and his hematuria resolved.
His post-renal AB resolved following fixing his Casey catheter (serum creatinine improved from 1.6 to 1.1).
He was also noted to be in A-fib with RVR on admission. He was treated with Cardizem initially, which was subsequently tapered off. In addition to continuing his prior to admission Toprol 100 mg daily, Toprol 50 mg at bedtime was also added. His
prior to admission Eliquis was resumed but at decreased dose 2.5 mg twice daily which he can continue going forward.
Discharge Plan
-
Patient Disposition: Fdc/SNF
Discharge Diagnosis/Procedures: Hematuria (resolved)
AB due to blocked catheter (resolved)
A-fib
Condition: Fair
Diet: Regular and Diabetic, Carb Controlled
Activity: As tolerated
Driving Restrictions: As prior to admission
Bathing Restrictions: None
Referrals:
[facility] [Outside]
[facility] [Outside]
Zuhair Nicole MD [Family Provider] - in less than 1 week
Additional Discharge Medication Instructions: Eliquis dose reduced to 2.5 mg twice daily to avoid further bleeding risk by cardiology
additional Lopressor 50 mg at night (in addition to 100 mg during the day) for better heart rate control
Prescriptions:
New
metoprolol succinate 50 mg Tablet Extended Release 24 Hr
50 mg PO DAILY@1999 30 Days Qty: 30 0RF
Continued
acetaminophen 325 mg Tablet
650 mg PO Q6H PRN (Reason: mild pain/fever>101)
Citrucel 500 mg Tablet
2,000 mg PO BID
dorzolamide 2 % drops
1 drp RIGHT EYE BID
cholecalciferol (vitamin D3) [Vitamin D3] 50 mcg (2,000 unit) Capsule
50 mcg PO DAILY
atorvastatin 40 mg Tablet
40 mg PO HS
omeprazole 20 mg Capsule,Delayed Release(Dr/Ec)
20 mg PO DAILY
ondansetron 4 mg Tablet,Disintegrating
4 mg PO Q8H PRN (Reason: nausea/vomiting)
metoprolol succinate 100 mg tablet extended release 24 hr
100 mg PO DAILY
valerian root 500 mg Capsule
1,000 mg PO HS
lorazepam 0.5 mg Tablet
0.5 mg PO DAILY
Rexulti 2 mg Tablet
2 mg PO DAILY
Vyzulta 0.024 % Drops
1 drp RIGHT EYE QPM
Changed
Eliquis 5 mg Tablet
2.5 mg PO BID Qty: 60 0RF
Discharge Orders:
Discharge Patient (As Directed); Ordered 08/23/24
Ordered By: Constantine Batista
Care Plan Goals
Care Plan Goals:
Problem: Readiness for enhanced knowledge related to diagnosis and treatment plan
Goal: Understand your diagnosis and treatment plan needs, including medications if applicable.
Instructions: Know your diagnosis, underlying causes and treatment plan options, including medications if applicable. Consult with your health care team to learn about your diagnosis and treatment plan, including medications if applicable.
Discharge Date and Time
Discharge Date/Time: 08/23/24 14:08
Print Language: EQUATORIAL GUINEAN
[2024-08-23] MEDS: MAGNESIUM SULFATE 50 IV (09:30)
--- NOTE | 2024-08-23 11:22 | PN.CDI ---
CDI
- -
CDI:
Physician Documentation Request
Admit Date: 08/21/24 16:30
Dear Doctor,
Please review the following and provide your response in the progress notes.
Clinical Indicators:
- patient admit for indwelling cuba catheter obstruction with hematuria
- per H&P pmh CKD
- 08/23 PN 'AB...Patient has a baseline creatinine of 1-1.2'
Laboratory Tests
08/21/24 08/22/24 08/23/24
14:07 03:03 05:39
Creatinine 1.6 H 1.4 H 1.1
eGFR 41.44 48.65 > 60.00
Please clarify which of the following accurately represents the patient's renal status:
AB on CKD 2
AB on CKD 3
Other (please specify)
Stages of Chronic Kidney Disease*
Level Description GFR
G1 Normal or High >90
G2 Mildly decreased 60-89
G3a Mildly to moderately decreased 45-59
G3b Moderately to severely decreased 30-44
G4 Severely decreased 15-29
G5 Kidney failure <15
Use of terms such as suspected, likely, concern for, or probable (associated with a specific diagnosis that is being evaluated, monitored, or treated as if it exists) are acceptable and can be coded in the inpatient setting, when documented at the
time of discharge.
Thank you,
Julianne Randall RN
CDI Specialist
Please use your independent medical judgment in providing your response.
*Source: Kidney Disease: Improving Global Outcomes (KDIGO) 2012
--- NOTE | 2024-08-23 11:31 | PTCARENOTE ---
Report called to jak villalpando. Spoke with Wayne Batista regarding the capped 3 way Casey for discharge and it is not to be exchanged prior to discharge
[2024-08-23 12:11] LABS: Glucose - Point of Care 150 mg/dl (70-99)
--- NOTE | 2024-08-23 12:13 | W.PN.URO.CBU ---
Today's Communication / Plan
-
PER HOP[STALIST CARDIOLOGY
Assessment / Plan
-
YORK \\NOW CLEAR PT WUITH DILEMMA OF A FIB AND TO PREVENT CVA IS ION ELIQUIS HOWVWER THS ADMIT DUE TO ELIQUS NO UTIS SUGEST NO BLOOD THINNERS IF POSSIBE NOW 3 EPISODEDS HEMTUIRA
Diagnosis
-
Date of Service: August 23, 2024
-
Patient Diagnosis:
Post Op Day:
Patient Diagnosis:
Post Op Day:
Patient Diagnosis:URINARY RETENTION WITH OBSTRUCTED YORK. ON ELIQUIS WITH HEMATURIA
Post Op Day:
Subjective
-
NO HEMATUIR A BUT DEMENTIA
Objective
-
Vital Signs
Temp Pulse Resp BP Pulse Ox
98.8 F 97 20 129/78 96
08/23/24 11:38 08/23/24 09:30 08/23/24 11:38 08/23/24 08:04 08/23/24 11:38
Intake and Output
08/22/24 08/23/24 08/24/24
06:59 06:59 06:59
Intake Total 2520 / 2520
Output Total 4875 / 4875 1700 / 1700
Balance -2355 / -2355 -1700 / -1700
Intake:
Oral fluids 720 / 720
IV fluids (Total) 50 / 50
Diltiazem 50 / 50
Amount instilled into Urinary 1750 / 1750
Drain (Total)
Output:
Urinary Drain Output (Total) 2450 / 2450
Urine, York 1700 / 1700
True Urine Output from CBI 2425 / 2425
Laboratory Results
08/23/24 05:39
08/23/24 05:39
Review of Systems
-
: Difficulty Voiding
Physical Exam
-
General - well developed, well nourished, no acute distress
Chest - clear bilaterally
Abdomen - soft, non-tender, positive bowel sounds, no CVAT, no incisional pain or distention
Genitalia - normal
Rectal - normal
Skin - warm & dry with no rash
Neuro - AOx3, no motor deficits
Extremities - no clubbing, no cyanosis, no edema
Incision - clean, dry
Dressing - clean, dry, intact
Counseling
-
NO CHANGES
[2024-08-23] MEDS: NOVOLOG FLEXPEN-LOW RESISTANCE 1 UNITS SC (12:58)
--- NOTE | 2024-08-23 14:07 | PTCARENOTE ---
Patient discharged to [facility], report called, papers faxed, yellow envelope sent with daughter. Patient assisted into car.
== END 2024-08-23 14:08 | DRG 699 ==
LOC: IVU 16:30
PROVIDERS: ADMITTING PHYSICIAN Internal Medicine; CONSULT PHYSICIAN Internal Medicine Cardiovascular Disease; CONSULT PHYSICIAN Internal Medicine Infectious Disease; EMERGENCY PHYSICIAN Emergency Medicine; FAMILY PHYSICIAN Internal Medicine Geriatric Medicine
DX: T83.091A Other mechanical complication of indwelling urethral catheter, initial encounter (principal); D68.32 Hemorrhagic disorder due to extrinsic circulating anticoagulants; I48.21 Permanent atrial fibrillation; I13.0 Hypertensive heart and chronic kidney disease with heart failure and stage 1 through stage 4 chronic kidney disease, or unspecified chronic kidney disease; I50.32 Chronic diastolic (congestive) heart failure; N17.9 Acute kidney failure, unspecified; E78.5 Hyperlipidemia, unspecified; N18.9 Chronic kidney disease, unspecified; K21.9 Gastro-esophageal reflux disease without esophagitis; Z66 Do not resuscitate; Y73.1 Therapeutic (nonsurgical) and rehabilitative gastroenterology and urology devices associated with adverse incidents
CPT/HCPCS: 51702; 80048; 81003; 81015; 82962; 83036; 83735; 85025; 85610; 87070; 87086; 93005; 93306; 96374; 97163; 97167; 99291; Q9950

== ENCOUNTER 2025-02-16 10:07 | Emergency (ER) | payer MEDICARE, SELFPAY ==
[2025-02-16 10:10] VITALS: BP 113/75
[2025-02-16 10:41] LABS: Urine Character Cloudy (Clear)
[2025-02-16 10:56] LABS: Urine Squamous Cell 0-2 /LPF (Few)
[2025-02-16 10:58] LABS: Urine Red Blood Cell 16-20 /HPF (0-2)
--- NOTE | 2025-02-16 12:18 | ED.GENMED ---
History of Present Illness
General
Chief Complaint: Catheter/Tube Problem
Time Seen by Provider: 02/16/25 10:12
History of Present Illness
History of Present Illness:
89-year-old male with history of dementia presents from [place] [facility] via ambulance due to a clogged Casey catheter. He can provide essentially no history due to severe dementia and is quite agitated on arrival
Past History
Past History
ED Past Medical History: Cancer (:), GERD, HTN, NIDDM and Other (Chronic indwelling Casey catheter, enlarged prostate, chronic kidney disease, carotid atherosclerosis, dementia)
ED Past Surgical History: None
Social History
Tobacco: Non-smoker
Alcohol: None
Review of Systems
Review of Systems
Allergies reviewed?: Yes
Unable to obtain full review of systems at this time due to: dementia
Phy Exam
Physical Exam
Physical Exam:
GEN: Well appearing, NAD, WDWN
HEENT: Oral mucosa moist, no scleral icterus
Cardiac: Regular rate
Lung: No respiratory distress, no tachypnea
: Urinary leakage around urethral meatus, red tinted cloudy urine in tubing
MSK: No gross deformity or injuries
Skin: Good color, no pallor or jaundice, no rashes
Neuro: Alert, agitates easily, profoundly confused
Psych: Calm, cooperative
Course
Orders/Labs/Results
Orders:
Orders
02/16/25 10:33
Urinalysis Reflex To Culture Urgent
Date Specimen was Collected: 02/16/25
Time Specimen was Collected: 10:32
Urine Microscopic Reflex Cult Urgent
Urine Culture Urgent
KEN Source: U
Specimen Description:
Date Specimen was Collected: 02/16/25
Time Specimen was Collected: 10:32
02/16/25 12:18
LevoFLOXacin [Levaquin] 250 mg PO NOW STA
Abnormal Lab Results
02/16/25
10:33
Ur Occult Blood Reflex 4+ A
(Negative)
Urine RBC 16-20 A /HPF
(0-2)
Urine Bacteria (Reflex) Many A
(Negative)
Urine Albumin (Reflex) 4+ A
(Neg - Trace)
Vital Signs
Initial and Last Documented VS:
Initial Vital Signs
Temp Pulse Resp BP Pulse Ox
98.7 F 75 18 113/75 98
02/16/25 10:10 02/16/25 10:10 02/16/25 10:10 02/16/25 10:10 02/16/25 10:10
Last Documented Vital Signs
Temp Pulse Resp BP Pulse Ox
98.7 F 75 18 113/75 98
02/16/25 10:10 02/16/25 10:10 02/16/25 10:10 02/16/25 10:10 02/16/25 12:18
MDM/Problems Addressed
MDM/Problems Addressed:
Casey catheter exchanged with good drainage, will cover with abx
*Pulse Oximetry
SaO2: 98
Oxygen Mode of Delivery: Room air
Patient hypoxic: no
*Critical Care Note
Total Time (30-74mins, 75-104mins- exclusive of procedures): Not Applicable
ED Attending Note
-
Portions of this chart may have been created with voice recognition software.� Occasional wrong word or��sound alike� substitutions may have occurred due to the inherent limitations of voice recognition software.
Discharge Plan
Departure
Patient Disposition: Home (Routine Discharge)
Date of Disposition: 02/16/25
Time of Disposition: 12:18
Patient with high blood pressure during this ER visit?: No
Discharge Problem:
Complication, blocked Casey catheter
Instructions: How to Care for Your Casey Catheter, Male
Prescriptions:
New
levofloxacin 250 mg tablet
250 mg PO DAILY Qty: 4 0RF
No Action
acetaminophen 325 mg Tablet
650 mg PO Q6H PRN (Reason: mild pain/fever>101)
Citrucel 500 mg Tablet
2,000 mg PO BID
dorzolamide 2 % drops
1 drp RIGHT EYE BID
cholecalciferol (vitamin D3) [Vitamin D3] 50 mcg (2,000 unit) Capsule
50 mcg PO DAILY
atorvastatin 40 mg Tablet
40 mg PO HS
omeprazole 20 mg Capsule,Delayed Release(Dr/Ec)
20 mg PO DAILY
ondansetron 4 mg Tablet,Disintegrating
4 mg PO Q8H PRN (Reason: nausea/vomiting)
metoprolol succinate 100 mg tablet extended release 24 hr
100 mg PO DAILY
valerian root 500 mg Capsule
1,000 mg PO HS
lorazepam 0.5 mg Tablet
0.5 mg PO DAILY
Rexulti 2 mg Tablet
2 mg PO DAILY
Vyzulta 0.024 % Drops
1 drp RIGHT EYE QPM
metoprolol succinate 50 mg Tablet Extended Release 24 Hr
50 mg PO DAILY@1999 30 Days Qty: 30 0RF
Eliquis 5 mg Tablet
2.5 mg PO BID Qty: 60 0RF
Referrals:
UNKNOWN - PT DOES,NOT KNOW [Family Provider]
Interventions
Interventions:
*Risk Screen - Suicide Last Done: 02/16/25 13:19
*General Assessment Last Done: 02/16/25 13:19
*Neglect/Abuse Screening Last Done: 02/16/25 13:19
*ED- Fall Risk Assessment Last Done: 02/16/25 13:19
*ED COVID-19 Vaccine History Last Done: 02/16/25 13:19
*Nursing Disposition Last Done: 02/16/25 13:19
EC-Zuvtdj-Jczevyovev Assessment Last Done: 02/16/25 13:20
ED-Male Genitourinary Assessment Last Done: 02/16/25 13:19
Discharge Date and Time
Discharge Date/Time: 02/16/25 13:20
Print Language: BELGIAN
[2025-02-16] MEDS: LEVAQUIN 250 MG PO (12:26)
== END 2025-02-16 13:20 | disposition home or self-care (01) ==
LOC: EMR 10:07
PROVIDERS: Physician Assistant; EMERGENCY PHYSICIAN Emergency Medicine
DX: T83.091A Other mechanical complication of indwelling urethral catheter, initial encounter (principal); X58.XXXA Exposure to other specified factors, initial encounter; E11.22 Type 2 diabetes mellitus with diabetic chronic kidney disease; I12.9 Hypertensive chronic kidney disease with stage 1 through stage 4 chronic kidney disease, or unspecified chronic kidney disease; N18.9 Chronic kidney disease, unspecified; F03.C11 Unspecified dementia, severe, with agitation
CPT/HCPCS: 51702; 99283; 81003; 81015; 87086

== ENCOUNTER 2025-03-15 09:23 | Emergency (ER) | payer MEDICARE, SELFPAY ==
[2025-03-15 09:24] VITALS: BP 110/58
[2025-03-15 09:31] VITALS: BMI 26.4
--- NOTE | 2025-03-15 09:56 | ED.GENMED ---
History of Present Illness
General
Chief Complaint: Catheter/Tube Problem
Source: patient
Exam Limitations: none
Time Seen by Provider: 03/15/25 09:27
History of Present Illness
History of Present Illness:
89-year-old male presents from [facility] with history of dementia and indwelling Casey catheter. The Casey catheter was clogged and could not get it to drain.
Past History
Past History
ED Past Medical History: Cancer (:), GERD, HTN, NIDDM and Other (Chronic indwelling Casey catheter, enlarged prostate, chronic kidney disease, carotid atherosclerosis, dementia)
ED Past Surgical History: None
Social History
Tobacco: Non-smoker
Alcohol: None
Phy Exam
Physical Exam
Physical Exam:
General: Well-appearing male no acute respiratory distress
HEENT: Normocephalic atraumatic
exam: Clogged Casey catheter attempts at irrigating it by hand unsuccessful
Abdomen soft nontender
Course
Orders/Labs/Results
Orders:
Orders
03/15/25 09:53
Casey [Casey Placement- Treatment] ONCE
Reason for insertion: Chronic Casey on Admit
Discontinue Casey Catheter As Directed
Comment:
03/15/25 10:09
Urinalysis Reflex To Culture Urgent
Date Specimen was Collected: 03/15/25
Time Specimen was Collected: 09:52
Urine Microscopic Reflex Cult Urgent
Urine Culture Urgent
KEN Source: U
Specimen Description:
Date Specimen was Collected: 03/15/25
Time Specimen was Collected: 09:52
Abnormal Lab Results
03/15/25
10:09
Ur Occult Blood Reflex 4+ A
(Negative)
Leukocyte Esterase Rfl 3+ A
(Negative)
Urine RBC 80-90 A /HPF
(0-2)
Urine WBC (Reflex) 11-15 A /HPF
(0-5)
Urine Bacteria (Reflex) Few A
(Negative)
Urine Glucose 1+ A
(Negative)
Urine Albumin (Reflex) 3+ A
(Neg - Trace)
Vital Signs
Initial and Last Documented VS:
Initial Vital Signs
Temp Pulse Resp BP Pulse Ox
98.7 F 69 18 110/58 98
03/15/25 09:24 03/15/25 09:24 03/15/25 09:24 03/15/25 09:24 03/15/25 09:24
Last Documented Vital Signs
Temp Pulse Resp BP Pulse Ox
98.7 F 69 18 110/58 98
03/15/25 09:24 03/15/25 09:24 03/15/25 09:24 03/15/25 09:24 03/15/25 09:57
MDM/Problems Addressed
Differential Diagnosis Includes:
Patient presents with clogged Casey catheter. Attempts at irrigating by him were unsuccessful. Casey catheter was exchanged for a 16 [place] Casey catheter.
*Pulse Oximetry
SaO2: 98
Oxygen Mode of Delivery: Room air
Patient hypoxic: no
*Critical Care Note
Total Time (30-74mins, 75-104mins- exclusive of procedures): Not Applicable
Update Note
Update Note:
Catheter was exchanged by nursing staff. Now the catheter is draining urine. Urinalysis likely contaminated specimen and patient is colonized. No fevers. Will hold off on treating for UTI
ED Attending Note
-
Portions of this chart may have been created with voice recognition software.� Occasional wrong word or��sound alike� substitutions may have occurred due to the inherent limitations of voice recognition software.
Discharge Plan
Departure
Patient Disposition: Home (Routine Discharge)
Date of Disposition: 03/15/25
Time of Disposition: 11:13
Patient with high blood pressure during this ER visit?: No
Discharge Problem:
Complication, blocked Casey catheter
Instructions: How to Care for Your Casey Catheter, Male
Prescriptions:
No Action
acetaminophen 325 mg Tablet
650 mg PO Q6H PRN (Reason: mild pain/fever>101)
Citrucel 500 mg Tablet
2,000 mg PO BID
dorzolamide 2 % drops
1 drp RIGHT EYE BID
cholecalciferol (vitamin D3) [Vitamin D3] 50 mcg (2,000 unit) Capsule
50 mcg PO DAILY
atorvastatin 40 mg Tablet
40 mg PO HS
omeprazole 20 mg Capsule,Delayed Release(Dr/Ec)
20 mg PO DAILY
ondansetron 4 mg Tablet,Disintegrating
4 mg PO Q8H PRN (Reason: nausea/vomiting)
metoprolol succinate 100 mg tablet extended release 24 hr
100 mg PO DAILY
valerian root 500 mg Capsule
1,000 mg PO HS
lorazepam 0.5 mg Tablet
0.5 mg PO DAILY
Rexulti 2 mg Tablet
2 mg PO DAILY
Vyzulta 0.024 % Drops
1 drp RIGHT EYE QPM
metoprolol succinate 50 mg Tablet Extended Release 24 Hr
50 mg PO DAILY@2000 30 Days Qty: 30 0RF
Eliquis 5 mg Tablet
2.5 mg PO BID Qty: 60 0RF
levofloxacin 250 mg tablet
250 mg PO DAILY Qty: 4 0RF
Referrals:
Zuhair Nicole MD [Family Provider, Internal Medicine]
Activity Restrictions/Additional Instructions:
Please return here if needed
Interventions
Interventions:
*Risk Screen - Suicide Last Done: 03/15/25 09:24
*General Assessment Last Done: 03/15/25 09:24
*Neglect/Abuse Screening Last Done: 03/15/25 09:24
*ED- Fall Risk Assessment Last Done: 03/15/25 10:50
*ED COVID-19 Vaccine History Last Done: 03/15/25 10:50
TM-Iuryje-Pcuhergqmc Assessment Last Done: 03/15/25 09:55
ED-Male Genitourinary Assessment Last Done: 03/15/25 09:55
Discharge Date and Time
Print Language: FAROESE
[2025-03-15 10:47] LABS: Urine Character Slightly Cloudy (Clear)
[2025-03-15 11:02] LABS: Urine Red Blood Cell 80-90 /HPF (0-2); Urine Squamous Cell 0-2 /LPF (Few)
== END 2025-03-15 12:40 | disposition home or self-care (01) ==
LOC: EMR 09:23
PROVIDERS: Physician Assistant; EMERGENCY PHYSICIAN Emergency Medicine; FAMILY PHYSICIAN Internal Medicine Geriatric Medicine
DX: T83.091A Other mechanical complication of indwelling urethral catheter, initial encounter (principal); X58.XXXA Exposure to other specified factors, initial encounter; I12.9 Hypertensive chronic kidney disease with stage 1 through stage 4 chronic kidney disease, or unspecified chronic kidney disease; E11.22 Type 2 diabetes mellitus with diabetic chronic kidney disease; N18.9 Chronic kidney disease, unspecified; F03.90 Unspecified dementia, unspecified severity, without behavioral disturbance, psychotic disturbance, mood disturbance, and anxiety
CPT/HCPCS: 51702; 99283; 81003; 81015; 87086

== ENCOUNTER 2025-05-04 16:24 | Emergency (ER) | payer MEDICARE, SELFPAY ==
[2025-05-04 16:26] VITALS: BP 106/77
--- NOTE | 2025-05-04 17:15 | ED.GENMED ---
History of Present Illness
General
Chief Complaint: Catheter/Tube Problem
Time Seen by Provider: 05/04/25 16:52
Nursing documentation reviewed up to this point in time: agreed with
History of Present Illness
History of Present Illness:
89-year-old male brought to the ER by EMS for evaluation of Casey catheter that was not draining appropriately at his long-term care facility. Patient is pleasantly confused with his history of dementia and has no other concerns today. No fevers.
No reported other concerns from nursing staff or prehospital personnel
Past History
Past History
ED Past Medical History: Cancer (:), GERD, HTN, NIDDM and Other (Chronic indwelling Casey catheter, enlarged prostate, chronic kidney disease, carotid atherosclerosis, dementia)
ED Past Surgical History: None
Social History
Tobacco: Non-smoker
Alcohol: None
Review of Systems
Review of Systems
Allergies reviewed?: Yes
Phy Exam
Physical Exam
Physical Exam:
Patient is awake, alert, pleasantly confused appears in no acute distress, head is NCAT, PERRL, EOMI mucous membranes moist, conjunctiva pink, heart regular rate and rhythm without murmurs or ectopy, lungs are clear to auscultation without wheezes
rales or rhonchi, no JVD, abdomen is soft and nontender on palpation, Casey catheter is present in penis draining pale clear yellow urine , extremities without edema, GCS is 15
Course
Orders/Labs/Results
Orders:
Labs considered but not ordered given overall benign appearance of patient and no worrisome symptoms
Vital Signs
Initial and Last Documented VS:
Initial Vital Signs
Temp Pulse Resp BP Pulse Ox
98.6 F 78 18 106/77 96
05/04/25 16:26 05/04/25 16:26 05/04/25 16:26 05/04/25 16:26 05/04/25 16:26
Last Documented Vital Signs
Temp Pulse Resp BP Pulse Ox
98.6 F 78 18 106/77 96
05/04/25 16:26 05/04/25 16:26 05/04/25 16:26 05/04/25 16:26 05/04/25 17:18
MDM/Problems Addressed
Differential Diagnosis Includes:
Differential diagnosis to consider but not limited to catheter malfunction, urinary tract infection, routine catheter change along with other etiologies considered
Chronic conditions affecting care:
long-term Casey catheter use, Dementia, advanced age
*Pulse Oximetry
SaO2: 96
Oxygen Mode of Delivery: Room air
Patient hypoxic: no
*Critical Care Note
Total Time (30-74mins, 75-104mins- exclusive of procedures): Not Applicable
Update Note
Update Note:
Casey catheter was changed by nurse prior to my evaluation. Post insertion bladder scan shows 2 mL. Will discharge back to the shelter
ED Attending Note
-
Portions of this chart may have been created with voice recognition software.� Occasional wrong word or��sound alike� substitutions may have occurred due to the inherent limitations of voice recognition software.
Discharge Plan
Departure
Patient Disposition: Home (Routine Discharge)
Date of Disposition: 05/04/25
Time of Disposition: 17:18
Patient with high blood pressure during this ER visit?: No
Discharge Problem:
Malfunction of Casey catheter
Prescriptions:
No Action
acetaminophen 325 mg Tablet
650 mg PO Q6H PRN (Reason: mild pain/fever>101)
Citrucel 500 mg Tablet
2,000 mg PO BID
dorzolamide 2 % drops
1 drp RIGHT EYE BID
cholecalciferol (vitamin D3) [Vitamin D3] 50 mcg (2,000 unit) Capsule
50 mcg PO DAILY
atorvastatin 40 mg Tablet
40 mg PO HS
omeprazole 20 mg Capsule,Delayed Release(Dr/Ec)
20 mg PO DAILY
ondansetron 4 mg Tablet,Disintegrating
4 mg PO Q8H PRN (Reason: nausea/vomiting)
metoprolol succinate 100 mg tablet extended release 24 hr
100 mg PO DAILY
valerian root 500 mg Capsule
1,000 mg PO HS
lorazepam 0.5 mg Tablet
0.5 mg PO DAILY
Rexulti 2 mg Tablet
2 mg PO DAILY
Vyzulta 0.024 % Drops
1 drp RIGHT EYE QPM
metoprolol succinate 50 mg Tablet Extended Release 24 Hr
50 mg PO DAILY@1999 30 Days Qty: 30 0RF
Eliquis 5 mg Tablet
2.5 mg PO BID Qty: 60 0RF
levofloxacin 250 mg tablet
250 mg PO DAILY Qty: 4 0RF
Referrals:
Zuhair Nicole MD [Family Provider, Internal Medicine]
Activity Restrictions/Additional Instructions:
Follow-up with your physician as needed. Continue current medications..
Interventions
Interventions:
*Risk Screen - Suicide Last Done: 05/04/25 16:29
*General Assessment Last Done: 05/04/25 16:29
*Neglect/Abuse Screening Last Done: 05/04/25 16:29
*ED COVID-19 Vaccine History Last Done: 05/04/25 16:29
*Nursing Disposition Last Done: 05/04/25 17:53
ED-Male Genitourinary Assessment Last Done: 05/04/25 16:54
Discharge Date and Time
Discharge Date/Time: 05/04/25 17:54
Print Language: YI
== END 2025-05-04 17:54 | disposition home or self-care (01) ==
LOC: EMR 16:24
PROVIDERS: EMERGENCY PHYSICIAN Emergency Medicine; FAMILY PHYSICIAN Internal Medicine Geriatric Medicine
DX: T83.091A Other mechanical complication of indwelling urethral catheter, initial encounter (principal); Y73.8 Miscellaneous gastroenterology and urology devices associated with adverse incidents, not elsewhere classified; I12.9 Hypertensive chronic kidney disease with stage 1 through stage 4 chronic kidney disease, or unspecified chronic kidney disease; E11.22 Type 2 diabetes mellitus with diabetic chronic kidney disease; N18.9 Chronic kidney disease, unspecified; F03.90 Unspecified dementia, unspecified severity, without behavioral disturbance, psychotic disturbance, mood disturbance, and anxiety; N40.0 Benign prostatic hyperplasia without lower urinary tract symptoms
CPT/HCPCS: 99282

== ENCOUNTER 2025-06-04 00:54 | Emergency (ER) | payer MEDICARE, SELFPAY ==
[2025-06-04 00:56] VITALS: BP 99/66; BMI 27.2
[2025-06-04 00:57] VITALS: BP 97/54
[2025-06-04 01:00] VITALS: BP 99/66
--- NOTE | 2025-06-04 01:19 | ED.GENMED ---
History of Present Illness
General
Chief Complaint: Fall
Source: patient
Exam Limitations: none
Time Seen by Provider: 06/04/25 00:57
Nursing documentation reviewed up to this point in time: agreed with
History of Present Illness
History of Present Illness:
89-year-old male with a past medical history of A-fib on Eliquis, hypertension, dementia, hyperlipidemia, who presents to the ER today with concerns of a mechanical fall. Patient has dementia and is a limited historian at baseline and reports that
he is not recall falling. I spoke to staff at [facility] when they were standing outside of patient's room and they heard a thud. They were in the room and saw that he was on the floor in between the bathroom and the bed. He was not unconscious at
the time and apparently he was telling staff that his left shoulder was hurting. No evidence of syncopal episode as per staff. Patient currently denies headache, dizziness, chest pain, shortness of breath. He denies neck pain. He denies shoulder
pain.
Past History
Past History
ED Past Medical History: Cancer (:), GERD, HTN, NIDDM and Other (Chronic indwelling Casey catheter, enlarged prostate, chronic kidney disease, carotid atherosclerosis, dementia)
ED Past Surgical History: None
Social History
Tobacco: Non-smoker
Alcohol: None
Review of Systems
Review of Systems
All Other Systems: ROS reviewed and negative except as documented in HPI and ROS
Phy Exam
Physical Exam
Physical Exam:
General: Patient is well appearing and in no acute distress; non-toxic
Skin: Warm and dry, no rashes or lesions
Head: Normocephalic, atraumatic
Eyes: Sclera non-icteric. EOMs intact.
Neck: No midline spinal tenderness to palpation
Cardiac: Regular rate and rhythm, no murmurs, no tenderness to palpation of the external chest wall, no crepitus
Peripheral Vascular: No lower extremity swelling or edema
Pulm: Normal respiratory effort, no wheezes, rales, or rhonchi
Abdomen: No abdominal tenderness to palpation, no bruising
Musculoskeletal: No pain with abduction or adduction of the left shoulder, small abrasion noted to anterior left shoulder. No bony tenderness to palpation of the left upper extremity. No pain with internal and external rotation of the hips
bilaterally.
Neuro: CN II-XII intact, no focal neurologic deficits.
Psychiatric: Appropriate mood and affect.
Course
Orders/Labs/Results
Orders:
Orders
06/04/25 01:03
CT Head W/o Iv Contrast Urgent
Comment:
Reason For Exam: fall thinners
06/04/25 01:06
CT Cervical Spine W/o Iv Contr Urgent
Comment:
Reason For Exam: fall, neck discomfort
06/04/25 01:11
CR Shoulder - Left Min 2 View* Urgent
Comment:
Reason For Exam: left anterior shoulder pain
Vital Signs
Initial and Last Documented VS:
Initial Vital Signs
Temp Pulse Resp BP Pulse Ox
97.5 F 85 16 99/66 96
06/04/25 00:56 06/04/25 00:56 06/04/25 00:56 06/04/25 00:56 06/04/25 00:56
Last Documented Vital Signs
Temp Pulse Resp BP Pulse Ox
97.5 F 80 16 101/76 100
06/04/25 00:56 06/04/25 03:10 06/04/25 03:10 06/04/25 03:07 06/04/25 03:10
MDM/Problems Addressed
Differential Diagnosis Includes:
ddx include abrasion, subdural hematoma, subarachnoid hemorrhage, shoulder sprain, humeral fracture
MDM/Problems Addressed:
89-year-old male with a past medical history of A-fib on Eliquis, hypertension, dementia, hyperlipidemia, who presents to the ER today with concerns of a mechanical fall. Staff reports that they heard a thud and within seconds, they ran to him
finding him on the floor. He was awake and alert at the time. Per staff he did not lose consciousness. They helped him up on his feet and he was able to walk but he is complaining of left shoulder pain at the time. Currently, patient has no
complaints. Patient does take Eliquis. On exam, patient is well-appearing in no acute distress. He has no signs of trauma. No focal neurodeficits. CT scan shows no acute intracranial hemorrhage. CT cervical spine shows no acute fracture.
X-ray shows no acute fracture or dislocation of the shoulder. Patient stable for discharge back to [facility] and can follow-up with primary care as needed.
Chronic conditions affecting care:
afib, htn, hlp
*Pulse Oximetry
SaO2: 96
Oxygen Mode of Delivery: Room air
Patient hypoxic: no
*Critical Care Note
Total Time (30-74mins, 75-104mins- exclusive of procedures): Not Applicable
Data Reviewed
Review of Other/Old Records Reveals: Records (Reviewed ER physician recommendation from 05/04/2025 patient seen for malfunction of Casey catheter, reviewed discharge summary from patient seen for rapid A-fib and hematuria from Casey catheter)
Source: patient and records
Patient Management
Escalation/DeEscalation of care consider admission/obs:
Admit not indicated, patient stable for discharge
ED Attending Note
-
Portions of this chart may have been created with voice recognition software.� Occasional wrong word or��sound alike� substitutions may have occurred due to the inherent limitations of voice recognition software.
Discharge Plan
Departure
Patient Disposition: Home (Routine Discharge)
Date of Disposition: 06/04/25
Time of Disposition: 03:12
Patient with high blood pressure during this ER visit?: No
Condition: Good
Discharge Problem:
Fall, Abrasion
Instructions: Preventing falls in adults, Skin Abrasions (DC)
Prescriptions:
No Action
acetaminophen 325 mg Tablet
650 mg PO Q6H PRN (Reason: mild pain/fever>101)
Citrucel 500 mg Tablet
2,000 mg PO BID
dorzolamide 2 % drops
1 drp RIGHT EYE BID
cholecalciferol (vitamin D3) [Vitamin D3] 50 mcg (2,000 unit) Capsule
50 mcg PO DAILY
atorvastatin 40 mg Tablet
40 mg PO HS
omeprazole 20 mg Capsule,Delayed Release(Dr/Ec)
20 mg PO DAILY
ondansetron 4 mg Tablet,Disintegrating
4 mg PO Q8H PRN (Reason: nausea/vomiting)
metoprolol succinate 100 mg tablet extended release 24 hr
100 mg PO DAILY
valerian root 500 mg Capsule
1,000 mg PO HS
lorazepam 0.5 mg Tablet
0.5 mg PO DAILY
Rexulti 2 mg Tablet
2 mg PO DAILY
Vyzulta 0.024 % Drops
1 drp RIGHT EYE QPM
metoprolol succinate 50 mg Tablet Extended Release 24 Hr
50 mg PO DAILY@1999 30 Days Qty: 30 0RF
Eliquis 5 mg Tablet
2.5 mg PO BID Qty: 60 0RF
levofloxacin 250 mg tablet
250 mg PO DAILY Qty: 4 0RF
Referrals:
Zuhair Nicole MD [Family Provider, Internal Medicine]
Activity Restrictions/Additional Instructions:
You can take Tylenol as needed for pain. Your CAT scan did not show any acute bleeding within the brain. You have no evidence of fracture within the cervical spine.
PLEASE RETURN TO THE ER SHOULD YOU DEVELOP HEADACHES, WEAKNESS IN ONE-SIDED BODY VERSUS OTHER, NUMBNESS OR TINGLING, INTRACTABLE NAUSEA OR VOMITING, CHEST PAIN, SHORTNESS OF BREATH, WEAKNESS, FEVERS OR CHILLS, OR ANY OTHER SIGNS OR SYMPTOMS
WORRISOME TO YOU.
Interventions
Interventions:
*Risk Screen - Suicide Last Done: 06/04/25 00:56
*General Assessment Last Done: 06/04/25 00:56
*Neglect/Abuse Screening Last Done: 06/04/25 00:56
*ED- Fall Risk Assessment Last Done: 06/04/25 03:52
*ED COVID-19 Vaccine History Last Done: 06/04/25 00:56
*ED Influenza Vaccine History Last Done: 06/04/25 00:56
*Nursing Disposition Last Done: 06/04/25 03:52
ED-Musculoskeletal Assessment Last Done: 06/04/25 01:43
ED- Neurological Assessment Last Done: 06/04/25 01:43
ED-Skin Assessment Last Done: 06/04/25 01:43
Discharge Date and Time
Discharge Date/Time: 06/04/25 03:53
Print Language: CANADIAN
[2025-06-04 03:07] VITALS: BP 101/76
== END 2025-06-04 03:53 | disposition home or self-care (01) ==
LOC: EMR 00:54
PROVIDERS: EMERGENCY PHYSICIAN Student in an Organized Health Care Education/Training Program; FAMILY PHYSICIAN Internal Medicine Geriatric Medicine
DX: S40.212A Abrasion of left shoulder, initial encounter (principal); F03.90 Unspecified dementia, unspecified severity, without behavioral disturbance, psychotic disturbance, mood disturbance, and anxiety; E11.22 Type 2 diabetes mellitus with diabetic chronic kidney disease; I12.9 Hypertensive chronic kidney disease with stage 1 through stage 4 chronic kidney disease, or unspecified chronic kidney disease; N18.9 Chronic kidney disease, unspecified; I48.91 Unspecified atrial fibrillation; I65.29 Occlusion and stenosis of unspecified carotid artery; E78.5 Hyperlipidemia, unspecified; K21.9 Gastro-esophageal reflux disease without esophagitis; N40.0 Benign prostatic hyperplasia without lower urinary tract symptoms; Z79.01 Long term (current) use of anticoagulants; W18.30XA Fall on same level, unspecified, initial encounter; Y92.129 Unspecified place in nursing home as the place of occurrence of the external cause
CPT/HCPCS: 99284; 70450; 72125; 73030

== ENCOUNTER 2025-06-30 08:04 | Emergency (ER) | payer MEDICARE, SELFPAY ==
[2025-06-30 08:07] VITALS: BP 99/59
--- NOTE | 2025-06-30 08:12 | ED.GENMED ---
History of Present Illness
General
Chief Complaint: Catheter/Tube Problem
Source: patient, ambulance crew and prison
Exam Limitations: dementia
Time Seen by Provider: 06/30/25 08:05
Nursing documentation reviewed up to this point in time: agreed with
History of Present Illness
History of Present Illness:
89-year-old male with history of dementia, hypertension, hyperlipidemia, atrial fibrillation, chronic Casey catheter presents from [facility] via EMS for evaluation apparently for catheter issue. Patient cannot meaningfully participate in
history due to significant dementia. According to EMS report he was sent over from [facility] due to a clogged Casey catheter. Spoke with [facility] nursing staff to obtain collateral history: Nursing staff reports that when they went to check him
this morning they noted that his catheter bag was empty and that he seemed to have leaked around his catheter into his brief. It sounds like they initially tried to flush the catheter and had trouble flushing it and so they sent him to the ER for
assessment. He does have history of significant agitation with transport to the ER and so he was given some Ativan 0.5 mg prior to transport for this reason.
Past History
Past History
ED Past Medical History: Cancer (:), GERD, HTN, NIDDM and Other (Chronic indwelling Casey catheter, enlarged prostate, chronic kidney disease, carotid atherosclerosis, dementia)
ED Past Surgical History: None
Social History
Tobacco: Non-smoker
Alcohol: None
Review of Systems
Review of Systems
Unable to obtain full review of systems at this time due to: dementia
All Other Systems: Not applicable
Phy Exam
Physical Exam
Physical Exam:
General: Patient is sleeping in bed, nontoxic
Head: Normocephalic, atraumatic
Eyes: Conjunctiva normal
Throat: Airway intact, handling secretions
Neck: Trachea midline
Lungs: Breathing comfortably with no evidence of respiratory distress, tachypnea or hypoxia
Heart: Regular rate
Abd: Soft, non distended, no apparent tenderness
: Csaey catheter in place, hematuria noted in the bag with no clots
Neuro: Cranial nerves grossly intact, speech fluid
Skin: no rash
Extremities: No edema in extremities, equal pulses in all extremities
Scores
Heart Failure Risk
Heart Failure Risk Score: Not Applicable
Heart Score for Chest Pain Patients
STEMI patient?: Not applicable
Withdrawal Assessment of Alcohol
Withdrawal Assessment Completed?: Not applicable
Course
Orders/Labs/Results
Orders:
Orders
06/30/25 08:14
Urinalysis Reflex To Culture Urgent
Date Specimen was Collected: 06/30/25
Time Specimen was Collected: 08:13
Urine Microscopic Reflex Cult Urgent
Urine Culture Urgent
KEN Source: U
Specimen Description:
Date Specimen was Collected: 06/30/25
Time Specimen was Collected: 08:13
Abnormal Lab Results
06/30/25
08:14
Ur Occult Blood Reflex 4+ A
(Negative)
Urine Nitrite (Reflex) Positive A
(Negative)
Leukocyte Esterase Rfl 3+ A
(Negative)
Urine Albumin (Reflex) 3+ A
(Neg - Trace)
Vital Signs
Initial and Last Documented VS:
Initial Vital Signs
BP
99/59
06/30/25 08:07
Last Documented Vital Signs
Temp Pulse Resp BP Pulse Ox
36.5 C 76 16 99/59 99
06/30/25 08:18 06/30/25 08:18 06/30/25 08:26 06/30/25 08:18 06/30/25 08:18
MDM/Problems Addressed
Differential Diagnosis Includes:
UTI, polyp, AVM, urethral bleeding
MDM/Problems Addressed:
89-year-old male was sent in with clogged Casey catheter. Apparently he leaked around his catheter into his briefs this morning and nursing staff had trouble flushing it by noon this morning. Thankfully his catheter appears to be working well
here. He does have some hematuria in his bag but no clots noted on my inspection. Bladder scan performed by me shows no retained urine in his bladder. I did personally flush his Casey catheter to instill fluid in his bladder and catheter was easy
to flush and fluid drained out freely without any problem. He may have had a small clot earlier that broke loose. Will continue to monitor here. Will send a urinalysis. If it remains functional can likely be discharged back to prison with
outpatient urology follow-up.
Urinalysis is positive for blood with nitrite positive as well�will plan to cover with antibiotics for possible infection triggering hematuria. Catheter continues to flow freely without issue, stable for discharge back to prison with
outpatient urology referral. Discussed with prison staff directly. All questions answered.
Chronic conditions affecting care:
Chronic Casey catheter, A-fib on Elijodiis complicates his hematuria
*Pulse Oximetry
Patient hypoxic: no (99%)
*Critical Care Note
Total Time (30-74mins, 75-104mins- exclusive of procedures): Not Applicable
Data Reviewed
Source: records, ambulance crew and prison
Patient Management
Discussion with other providers: detention staff (Discussed directly with prison staff)
ED Attending Note
-
Portions of this chart may have been created with voice recognition software.� Occasional wrong word or��sound alike� substitutions may have occurred due to the inherent limitations of voice recognition software.
Discharge Plan
Departure
Patient Disposition: Home (Routine Discharge)
Date of Disposition: 06/30/25
Time of Disposition: 08:27
Patient with high blood pressure during this ER visit?: No
Discharge Problem:
Hematuria
Instructions: Blood in the urine (hematuria) in adults
Prescriptions:
New
ciprofloxacin HCl [Cipro] 250 mg tablet
250 mg PO BID Qty: 10 0RF
No Action
acetaminophen 325 mg Tablet
650 mg PO Q6H PRN (Reason: mild pain/fever>101)
Citrucel 500 mg Tablet
2,000 mg PO BID
dorzolamide 2 % drops
1 drp RIGHT EYE BID
cholecalciferol (vitamin D3) [Vitamin D3] 50 mcg (2,000 unit) Capsule
50 mcg PO DAILY
atorvastatin 40 mg Tablet
40 mg PO HS
omeprazole 20 mg Capsule,Delayed Release(Dr/Ec)
20 mg PO DAILY
ondansetron 4 mg Tablet,Disintegrating
4 mg PO Q8H PRN (Reason: nausea/vomiting)
metoprolol succinate 100 mg tablet extended release 24 hr
100 mg PO DAILY
valerian root 500 mg Capsule
1,000 mg PO HS
lorazepam 0.5 mg Tablet
0.5 mg PO DAILY
Rexulti 2 mg Tablet
2 mg PO DAILY
Vyzulta 0.024 % Drops
1 drp RIGHT EYE QPM
metoprolol succinate 50 mg Tablet Extended Release 24 Hr
50 mg PO DAILY@1999 30 Days Qty: 30 0RF
Eliquis 5 mg Tablet
2.5 mg PO BID Qty: 60 0RF
levofloxacin 250 mg tablet
250 mg PO DAILY Qty: 4 0RF
Referrals:
Nalini Galvez MD [[facility], Urology] - Call in 1-3 days for appt
Activity Restrictions/Additional Instructions:
The patient was seen in the emergency room with clogged catheter and blood in his urine. Thankfully his catheter was functional here and we were able to flush it without an issue. He did have significant blood in his urine and so he was started on
an antibiotic in case of infection and he should take this as prescribed. He should follow-up with the urologist within the next week. Continue to monitor his urine and if he is starting to have darker red urine or if he is starting to pass clots
or clogs his catheter again he may need to return to the ER.
Thank you for visiting the Emergency Department at [facility].
1. Please schedule a follow up appointment as directed. Call first thing tomorrow morning to make an appointment.
2. If indicated, please take your medications as instructed and indicated on discharge paperwork.
3. If any of your symptoms do not improve, or persist, or become more severe within 6-12 hours, please return to the emergency department for further care.
4. Please return to the emergency department if you develop a headache, neck pain/stiffness, fever greater than 100.4F, chest pain, shortness of breath, persistent nausea, vomiting, slurred speech, difficulty walking, numbness/tingling, weakness,
signs of infection or any other symptoms that are worrisome to you.
Please call [phone] if you have any questions.
Interventions
Interventions:
*Risk Screen - Suicide Last Done: 06/30/25 08:24
*General Assessment Last Done: 06/30/25 08:24
*Neglect/Abuse Screening Last Done: 06/30/25 08:24
*ED COVID-19 Vaccine History Last Done: 06/30/25 08:23
*ED Influenza Vaccine History Last Done: 06/30/25 08:23
Discharge Date and Time
Print Language: UZBEK
[2025-06-30 08:18] VITALS: BP 99/59
[2025-06-30 08:26] LABS: Urine Character Cloudy (Clear)
[2025-06-30 09:05] LABS: Urine Red Blood Cell >100 /HPF (0-2); Urine White Cell 16-20 /HPF (0-5)
[2025-06-30 10:38] VITALS: BP 103/71
== END 2025-06-30 11:31 | disposition home or self-care (01) ==
LOC: EMR 08:04
PROVIDERS: EMERGENCY PHYSICIAN Emergency Medicine; FAMILY PHYSICIAN Internal Medicine Geriatric Medicine
DX: R31.9 Hematuria, unspecified (principal); E11.22 Type 2 diabetes mellitus with diabetic chronic kidney disease; I12.9 Hypertensive chronic kidney disease with stage 1 through stage 4 chronic kidney disease, or unspecified chronic kidney disease; N18.9 Chronic kidney disease, unspecified; F03.90 Unspecified dementia, unspecified severity, without behavioral disturbance, psychotic disturbance, mood disturbance, and anxiety; I48.91 Unspecified atrial fibrillation; Z79.01 Long term (current) use of anticoagulants; N40.0 Benign prostatic hyperplasia without lower urinary tract symptoms; Z96.0 Presence of urogenital implants
CPT/HCPCS: 99283; 81003; 81015; 87086

== ENCOUNTER 2025-08-11 08:13 | Emergency (ER) | payer MEDICARE, SELFPAY ==
[2025-08-11 08:18] VITALS: BP 136/94
--- NOTE | 2025-08-11 08:18 | ED.GENMED ---
History of Present Illness
General
Chief Complaint: Catheter/Tube Problem
Source: patient
Exam Limitations: none
Time Seen by Provider: 08/11/25 08:18
History of Present Illness
History of Present Illness:
89-year-old male with history of dementia presents via EMS from facility after he removed his catheter. He has a chronic indwelling Casey catheter. Patient cannot provide any valuable history secondary to his dementia. No other complaints
Past History
Past History
ED Past Medical History: Cancer (:), GERD, HTN, NIDDM and Other (Chronic indwelling Casey catheter, enlarged prostate, chronic kidney disease, carotid atherosclerosis, dementia)
ED Past Surgical History: None
Social History
Tobacco: Non-smoker
Alcohol: None
Phy Exam
Physical Exam
Physical Exam:
General: Well-appearing male no acute respiratory distress
HEENT: Normal cephalic atraumatic heart: Regular rate and rhythm
Lungs: Clear no wheeze
Abdomen is soft nontender
Course
Orders/Labs/Results
Orders:
Orders
08/11/25 08:21
Casey Placement- Treatment ONCE
Reason for insertion: Chronic Casey on Admit
Vital Signs
Initial and Last Documented VS:
Initial Vital Signs
Temp Pulse Resp BP Pulse Ox
97.6 F 98 18 136/94 99
08/11/25 08:18 08/11/25 08:18 08/11/25 08:18 08/11/25 08:18 08/11/25 08:18
Last Documented Vital Signs
Temp Pulse Resp BP Pulse Ox
97.6 F 98 18 136/94 99
08/11/25 08:18 08/11/25 08:18 08/11/25 08:18 08/11/25 08:18 08/11/25 08:18
MDM/Problems Addressed
Differential Diagnosis Includes:
Patient self removed his catheter. He has a chronic indwelling Casey catheter. Will replace it here.
*Pulse Oximetry
Patient hypoxic: no
*Critical Care Note
Total Time (30-74mins, 75-104mins- exclusive of procedures): Not Applicable
Update Note
Update Note:
Catheter replaced with a 16 [place] Casey catheter. Patient discharged back to facility.
ED Attending Note
-
Portions of this chart may have been created with voice recognition software.� Occasional wrong word or��sound alike� substitutions may have occurred due to the inherent limitations of voice recognition software.
Discharge Plan
Departure
Patient Disposition: Home (Routine Discharge)
Date of Disposition: 08/11/25
Time of Disposition: 08:44
Patient with high blood pressure during this ER visit?: No
Discharge Problem:
Dislodged Casey catheter
Prescriptions:
No Action
acetaminophen 325 mg Tablet
650 mg PO Q6H PRN (Reason: mild pain/fever>101)
Citrucel 500 mg Tablet
2,000 mg PO BID
dorzolamide 2 % drops
1 drp RIGHT EYE BID
cholecalciferol (vitamin D3) [Vitamin D3] 50 mcg (2,000 unit) Capsule
50 mcg PO DAILY
atorvastatin 40 mg Tablet
40 mg PO HS
omeprazole 20 mg Capsule,Delayed Release(Dr/Ec)
20 mg PO DAILY
ondansetron 4 mg Tablet,Disintegrating
4 mg PO Q8H PRN (Reason: nausea/vomiting)
metoprolol succinate 100 mg tablet extended release 24 hr
100 mg PO DAILY
valerian root 500 mg Capsule
1,000 mg PO HS
lorazepam 0.5 mg Tablet
0.5 mg PO DAILY
Rexulti 2 mg Tablet
2 mg PO DAILY
Vyzulta 0.024 % Drops
1 drp RIGHT EYE QPM
metoprolol succinate 50 mg Tablet Extended Release 24 Hr
50 mg PO DAILY@1999 30 Days Qty: 30 0RF
Eliquis 5 mg Tablet
2.5 mg PO BID Qty: 60 0RF
levofloxacin 250 mg tablet
250 mg PO DAILY Qty: 4 0RF
ciprofloxacin HCl [Cipro] 250 mg tablet
250 mg PO BID Qty: 10 0RF
Activity Restrictions/Additional Instructions:
Return if needed
Discharge Date and Time
Print Language: VINCENTIAN
[2025-08-11 08:51] VITALS: BMI 25.7
== END 2025-08-11 10:19 | disposition home or self-care (01) ==
LOC: EMR 08:13
PROVIDERS: EMERGENCY PHYSICIAN Emergency Medicine; FAMILY PHYSICIAN Internal Medicine Geriatric Medicine
DX: T83.021A Displacement of indwelling urethral catheter, initial encounter (principal); Y73.8 Miscellaneous gastroenterology and urology devices associated with adverse incidents, not elsewhere classified; E11.22 Type 2 diabetes mellitus with diabetic chronic kidney disease; I12.9 Hypertensive chronic kidney disease with stage 1 through stage 4 chronic kidney disease, or unspecified chronic kidney disease; N18.9 Chronic kidney disease, unspecified; F03.90 Unspecified dementia, unspecified severity, without behavioral disturbance, psychotic disturbance, mood disturbance, and anxiety; N40.0 Benign prostatic hyperplasia without lower urinary tract symptoms
CPT/HCPCS: 51702; 99283